=== PATIENT | male | born 1940 | race Caucasian/White ===

== ENCOUNTER 2019-08-02 18:51 | Inpatient (IN) | payer MEDICARE ==
[~2019-08-02] VITALS: Ht 177.8 cm; Wt 77.8 kg
[~2019-08-02 18:51] MED LIST: ASPIRIN81 M1 PO; AUGMENTIN 875875 MG PO; CARVEDILOL25 MG PO; COREG3.125 MG PO; DONEPEZIL HCL10 MG PO; DOXYCYCLINE100 M3 PO; OMEPRAZOLE10 MG PO; OMEPRAZOLE20 MG PO; VITAMIN D31000 UNI1 PO
[2019-08-02 18:56] VITALS: BP 134/44
[2019-08-02 19:00] VITALS: BP 140/50
[2019-08-02 19:27] LABS: BASO # 0.1 10*3/uL (0.0-0.1); BASO % 0.4 % (0.0-1.0); EOS # 0.1 10*3/uL (0.0-0.4); EOS % 0.8 % (1.0-4.0); HEMATOCRIT 40.9 % (42.0-52.0); HEMOGLOBIN 14.1 g/dl (14.0-18.0); LYMPH # 3.9 10*3/uL (1.3-4.4); LYMPH % 22.9 % (27.0-41.0); MEAN CELL VOLUME 92.3 fl (80.0-94.0); MEAN CORPUSCULAR HGB 31.8 pg (27.0-31.0); MEAN CORPUSCULAR HGB CONC 34.5 g/dl (33.0-37.0); MEAN PLATELET VOLUME 9.3 fl (9.6-12.3); MONO % 6.1 % (3.0-9.0); NEUT # 11.7 10*3/uL (2.3-7.9); NEUT % 69.3 % (47.0-73.0); PLATELET COUNT AUTOMATED 279 10*3/uL (130-400); RED BLOOD COUNT 4.43 10*6/uL (4.50-5.90); RED CELL DISTRI WIDTH 12.3 % (0-14.5); WHITE BLOOD COUNT 16.8 10*3/uL (4.8-10.8)
[2019-08-02 19:39] LABS: ACT PARTIAL THROMBO TIME 23.1 SECONDS (20.0-32.1); INTERNATIONAL NORM RATIO 0.9 (2.0-3.5)
[2019-08-02 20:01] VITALS: BP 130/60
--- NOTE | 2019-08-02 20:04 | NUR ---
I WAS PERSONALLY ORDERED TO HOLD MEDICATIONS UNTIL ORDERED TO GIVE.
[2019-08-02 20:08] LABS: ALBUMIN 3.6 gm/dl (3.1-4.5); ALKALINE PHOSPHATASE 50 U/L (45-117); BUN 14 mg/dl (7-24); CHLORIDE 110 mmol/L (98-107); CREATININE 0.94 mg/dL (0.70-1.30); POTASSIUM 3.6 mmol/L (3.5-5.1); SGOT/AST 16 IU/L (3-35); SGPT/ALT 23 U/L (12-78); SODIUM 140 mmol/L (136-145); TOTAL PROTEIN 7.1 gm/dL (6.4-8.2)
[2019-08-02 20:10] LABS: TROPONIN I < 0.015 ng/ml (<0.045)
[2019-08-02 20:45] VITALS: BP 93/73
--- NOTE | 2019-08-02 20:45 | NUR ---
A 78, admitted to ICCU, under the services of KALA Mendoza DO with a diagnosis of OVERDOSE BETA JODY ALZHEIMER DEMENTIA BRADYCARDIA. Chief complaint is DONT FEEL WELL. Patient arrived via stretcher from ER. Monitor applied. Initial assessment completed. Vital signs taken and recorded. KALA MENDOZA DO notified of admission to the unit. Orders received. See assessment for past medical history, medications and allergies. Patient and/or family oriented to unit. [facility] ICCU visitation policy reviewed. Clothing/patient valuable form completed. RALPH ANDERSON
--- NOTE | 2019-08-02 22:02 | NUR ---
PATIENTS FAMILY IN TO SEE PATIENT DAUGHTER STATED THAT SHE IS MEDICAL POWER OF CARROTING MACHINE OFFBEARER AND WILL BRING PAPERS IN TOMORROW. PATIENTS FAMILY ALSO SAID THAT THEY WOULD LIKE PATIENT TO HAVE FLU VAC UPON DISCHARGE.
--- NOTE | 2019-08-02 22:30 | NUR ---
PATIENT REFUSED EKG. DOCTOR RAMONA ON THE FLOOR HE WAS INFORMED.
--- NOTE | 2019-08-02 22:35 | NUR ---
POISION CONTROL CALLED TO GET STATUS UPDATE ON PATIENT. NO NEW ORDERS AT THIS TIME.
[2019-08-03] VITALS (7 sets, daily range): BP systolic 97–127; BP diastolic 38–49
--- NOTE | 2019-08-03 05:10 | NUR ---
PATIENT HAS SLEPT THROUGH OUT THE NIGHT AND VOICED NO COMPLAINTS TO ME. PATIENT DENIES SOB. I ASKED THE PATIENT THIS MORNING IF HE WANTED A DRINK OF WATER PATIENT SAID NO I ASKED THE PATIENT IF HE HAD TO URINATE HE SAID NO PATIENT HAS NOT URINATED SINCE BEING ADMITTED.
[2019-08-03 05:40] LABS: ALBUMIN 3.3 gm/dl (3.1-4.5); ALKALINE PHOSPHATASE 49 U/L (45-117); BUN 12 mg/dl (7-24); CHLORIDE 107 mmol/L (98-107); CHOLESTEROL 219 mg/dL (<200); CREATININE 0.82 mg/dL (0.70-1.30); HDL CHOLESTEROL 44 mg/dl (40-60); LDL CHOLESTEROL 150 mg/dL (9-159); PHOSPHOROUS 3.7 mg/dL (2.5-4.9); POTASSIUM 3.8 mmol/L (3.5-5.1); SGOT/AST 15 IU/L (3-35); SGPT/ALT 22 U/L (12-78); SODIUM 143 mmol/L (136-145); TOTAL PROTEIN 6.5 gm/dL (6.4-8.2); TRIGLYCERIDES 126 mg/dl (<150); VLDL CHOLESTEROL 25 mg/dL (6-40)
[2019-08-03 05:45] LABS: THYROID STIM HORMONE (HS) 0.637 uIU/ml (0.358-4.75)
[2019-08-03 06:26] LABS: ACT PARTIAL THROMBO TIME 25.1 SECONDS (20.0-32.1); INTERNATIONAL NORM RATIO 0.9 (2.0-3.5)
[2019-08-03 06:28] LABS: BASO % 0.3 % (0.0-1.0); EOS % 0.1 % (1.0-4.0); HEMATOCRIT 41.2 % (42.0-52.0); HEMOGLOBIN 13.4 g/dl (14.0-18.0); LYMPH # 1.9 10*3/uL (1.3-4.4); LYMPH % 20.8 % (27.0-41.0); MEAN CORPUSCULAR HGB 31.4 pg (27.0-31.0); MEAN CORPUSCULAR HGB CONC 32.5 g/dl (33.0-37.0); MEAN PLATELET VOLUME 9.7 fl (9.6-12.3); MONO # 0.6 10*3/uL (0.1-1.0); MONO % 6.3 % (3.0-9.0); NEUT # 6.7 10*3/uL (2.3-7.9); NEUT % 72.2 % (47.0-73.0); PLATELET COUNT AUTOMATED 279 10*3/uL (130-400); RED BLOOD COUNT 4.27 10*6/uL (4.50-5.90); RED CELL DISTRI WIDTH 12.5 % (0-14.5); WHITE BLOOD COUNT 9.2 10*3/uL (4.8-10.8)
[2019-08-03 06:40] LABS: MEAN CELL VOLUME 96.5 fl (80.0-94.0)
[2019-08-03 07:06] LABS: VITAMIN D, 25-HYDROXY 20.3 ng/mL (30-100)
[2019-08-03 08:20] LABS: BILIRUBIN NEGATIVE (NEGATIVE); BLOOD TRACE-INTACT (NEGATIVE); CLARITY CLEAR (CLEAR); COLOR YELLOW (YELLOW); GLUCOSE NEGATIVE (NEGATIVE); KETONE NEGATIVE (NEGATIVE); LEUKO ESTERASE NEGATIVE (NEGATIVE); NITRITE NEGATIVE (NEGATIVE); SPECIFIC GRAVITY 1.025 (1.005-1.030); UROBILINOGEN 0.2 E.U./dl (0.2-1.0)
[2019-08-03 08:28] LABS: BACTERIA TRACE; MUCOUS 1+
[2019-08-03 08:29] LABS: EPITHELIAL CELLS 0-2
--- NOTE | 2019-08-03 08:56 | NUR ---
[facility] NOTIFIED OF NEW CONSULT FOR COMPETENCY. THEY STATED THAT WOULD BE AND SHE WILL BE IN ON MONDAY.
--- NOTE | 2019-08-03 12:52 | NUR ---
COPY OF MEDICAL POWER OF CLIENT SUPPORT MANAGER HAS BEEN PLACED ON THE CHART
[2019-08-04] VITALS: BP 103/44
[2019-08-04 04:00] VITALS: BP 120/61
[2019-08-04 04:30] LABS: BASO # 0.1 10*3/uL (0.0-0.1); BASO % 0.6 % (0.0-1.0); EOS # 0.1 10*3/uL (0.0-0.4); EOS % 1.4 % (1.0-4.0); HEMOGLOBIN 13.4 g/dl (14.0-18.0); LYMPH # 2.9 10*3/uL (1.3-4.4); LYMPH % 37.3 % (27.0-41.0); MEAN CELL VOLUME 95.2 fl (80.0-94.0); MEAN CORPUSCULAR HGB 31.9 pg (27.0-31.0); MEAN CORPUSCULAR HGB CONC 33.5 g/dl (33.0-37.0); MEAN PLATELET VOLUME 9.3 fl (9.6-12.3); MONO # 0.6 10*3/uL (0.1-1.0); MONO % 8.3 % (3.0-9.0); NEUT % 52.1 % (47.0-73.0); PLATELET COUNT AUTOMATED 252 10*3/uL (130-400); RED CELL DISTRI WIDTH 12.6 % (0-14.5); WHITE BLOOD COUNT 7.7 10*3/uL (4.8-10.8)
[2019-08-04 04:44] LABS: BUN 11 mg/dl (7-24); CHLORIDE 112 mmol/L (98-107); CREATININE 0.89 mg/dL (0.70-1.30); POTASSIUM 3.4 mmol/L (3.5-5.1); SODIUM 143 mmol/L (136-145)
[2019-08-04 08:00] VITALS: BP 101/46
[2019-08-04 12:00] VITALS: BP 110/64
--- NOTE | 2019-08-04 12:45 | NUR ---
PHYSICAL THERAPY PT EVAL COMPLETED TODAY: FULL EVAL TO FOLLOW. RECOMMEND PT WHILE HERE TO ADDRESS DECREASED STRENGTH AND FUNCTIONAL MOBILITY. D/C RECOMMENDATIONS ARE SNF ON D/C TO GAIN MAX LEVEL OF MOBILITY AND PER HX AND DEMENTIA RECOMMEND ALTERNATIVE PLACEMENT SUCH SKILLED NURSING OR LTC OF 24 HR CARE AND DO NOT FEEL HE IS ABLE TO RETURN TO HOME ALONE. THANK YOU FOR REFERRAL MARIA FERNANDA GALINDO PT
[2019-08-04 16:00] VITALS: BP 108/51
[2019-08-04 20:00] VITALS: BP 102/42
[2019-08-05] VITALS: BP 101/44
[2019-08-05 06:33] LABS: BUN 10 mg/dl (7-24); CHLORIDE 109 mmol/L (98-107); CREATININE 0.92 mg/dL (0.70-1.30); POTASSIUM 3.3 mmol/L (3.5-5.1); SODIUM 142 mmol/L (136-145)
[2019-08-05 08:00] VITALS: BP 107/85
--- NOTE | 2019-08-05 08:11 | NUR ---
awake and alert, cooperative, sitting upright eating, no voiced c/o
--- NOTE | 2019-08-05 10:00 | NUR ---
PHYSICAL THERAPY Patient seen this am 1;1 for therapy visit and was resting supine in bed upon therapist arrival. Patient identified by name / and reports no new c/o's at this time. Patient transfers supine to sit EOB then sit to stand CGA, and ambulates COAL PULVERIZER OPERATOR/CGA, 50'x 2, demonstrating decreased stride with shuffling gait pattern. Patient also demonstrated "drifting" to R side and very cautious / unsteady during 90/180 turns. Patient tolerated eyes open / closed standing balance with LOB x 1 and single leg stance L side 3 seconds, R side 2 seconds prior to LOB. Patient returned to supine in bed and remained with bed alarm activated under ICCU staff Supervision. Will continue per POC as tolerated, total treatment time 17 minutes. Antwan Glaser, STORE PROTECTION SPECIALIST
--- NOTE | 2019-08-05 10:30 | NUR ---
Brick Veneer Maker in to talk to patient. Patient states lives at home alone with his family checking in on him. There are 0 steps in the home. Physician: Dr. Luigi De Oliveira Pharmacy: [facility] Home health services: none Patient's level of ADLs: INDEPENDENT Patient has working utilities: yes DME: none Follow-up physician's appointment after d/c: will be made by the hospitalist nurse director upon discharge Does patient want to access PORTAL?: no Discharge plan discussed with patient. He is sitting up in his bedside chair without distress noted. He lives at home alone with his family checking in on him. He states there are no stairs in his home. He is independent in his ADLs and ambulation. Discussed discharge planning and he is unsure of any home needs at this time. His daughter will provide transportation on discharge. Will speak to daughter. MELISSA ESPINOZA
--- NOTE | 2019-08-05 11:21 | NUR ---
TERESA received call from patients daughter. She stated that she would like the patient to be referred to [facility]. TERESA will notify Petroleum Refining Equipment Operator. -TERESA Hdz
--- NOTE | 2019-08-05 14:00 | NUR ---
Occupational therapy orders received and OT evaluation completed in full in the ICU. Patient precautions include fall risk, ww use, h/o dementia and Alzheimer's, A&Ox1, and heart monitor. Per OT eval, OT recommends a SNF. Patient would benefit from continued OT treatment to maximize independence in ADLs, functional mobility/transfers, and safety. Patient complexity is low, [id number]. Thank you for the referral. Flores Angel, OTR/L
[2019-08-05 16:00] VITALS: BP 120/72
--- NOTE | 2019-08-05 16:35 | NUR ---
CALLED TO ICU TO SPEAK WITH DAUGHTER. SHE IS VERY CONFUSED ON PLACEMENT FOR PT. TALKED WITH DAUGHTER AT LENGTH ABOUT SKILLED FACILITY VS LOCKED FACILITIES. DR HOLDEN ALSO PRESENT FOR VISIT. PER DR HOLDEN PT HAS A BHU CONSULT AND I EXPLAINED TO DAUGHTER THAT WE NEEDED TO WAIT FOR THAT TO BE DONE TO SEE IF PT WOULD QUALIFY FOR BHU STAY TO ADJUST MEDS AND SEE IF THAT WOULD HELP. DAUGHTER IS IN AGREEANCE TO THIS. EXPLAINED TO HER THAT MOST SKILLED FACILITIES ARE NOT LOCKED UNITS AND THEY MAY NOT ACCEPT PT IF HE IS A FLIGHT RISK. DAUGHTER STATES HE WOULD MOST LIKELY ATTEMPT TO LEAVE. WILL WAIT FOR DR JAMES RECOMENDATIONS AND DAUGHTER IS OK WITH THIS.
--- NOTE | 2019-08-05 17:33 | NUR ---
TRANSFERRED TO 509 WITH BELONGINGS DTR WITH PT AND AWARE OF TRANSFER
--- NOTE | 2019-08-05 17:50 | NUR ---
PT ON FLOOR. RECEIVED REPORT FROM NURSE SMALL FROM ICU. PT IN ROOM WITH DAUGHTER. INTRODUCED SELF TO PT AND DAUGHTER. PT ORIENTED TO THE ROOM AND TAUGHT USE OF CALL LIGHT. PT GETTING IN THE SHOWER. NO COMPLAINTS AT THIS TIME.
--- NOTE | 2019-08-05 19:30 | NUR ---
PATIENT SITTING IN ROOM READING THE PAPER. PLEASANTLY CONFUSED. REMINDED PATIENT TO STAY IN HIS ROOM AND LET STAFF KNOW IF HE NEEDED ANYTHING. PATIENT STATED HE WAS GETTING READY TO GO TO BED. PATIENT ASSISTED TO BED AND BED ALARM TURNED ON FOR SAFETY. CALL LIGHT WITHIN REACH.
[2019-08-05 20:00] VITALS: BP 118/51
[2019-08-06] VITALS: BP 114/59
--- NOTE | 2019-08-06 00:47 | NUR ---
24 HR chart check completed.
--- NOTE | 2019-08-06 02:00 | NUR ---
PATIENT SLEEPING IN BED. RESPIRATIONS EVEN AND UNLABORED. BED LOCKED IN LOWEST POSITION. BED ALARM ON FOR SAFETY. CALL LIGHT WITHIN REACH.
--- NOTE | 2019-08-06 07:25 | NUR ---
Spoke with patients daughter regarding requirments for short term skilled placement. She stated patient doesn't need any physical rehabilitation, he needs placed for his dementia. She stated he will qualify for Medicaid but she was told we have to find a facility prior to applying since patient is from [place]. Also gave her the option of taking him to [facility] during the day and having him live with her at night/after work. She was also going to call [facility] to see how much it would cost or if they would accept medicaid waiver. Case also discussed with Gloria STEELE.
[2019-08-06 08:00] VITALS: BP 119/57
--- NOTE | 2019-08-06 09:00 | NUR ---
PT UP IN ROOM, PLEASANTLY CONFUSED. REORIENTED FREQUENTLY. CLOSE OBSERVATION MAINTAINED.
--- NOTE | 2019-08-06 09:50 | NUR ---
OT NOTE Pt was seen this A.M. 1:1 for 13 minute OT session. Upon arrival pt was supine in bed. Pt identified by name and and had no complaints at this time. Pt transferred supine to sit EOB with SBA. While sitting EOB pt donned B socks with CGA for safety. Sit to stand completed from the bed level with CGA followed by functional mobility into the bathroom with CGA RESTAURANT CREW MEMBER, pt had bouts of unsteady gait that resulted in LOB in various directions that required Barbara to correct. Pt then stood sink side while completing UB grooming task with Barbara for assist with sequencing. Pt had one LOB backwards that required Barbara to correct. Functional mobility then completed to the recliner where he was left sitting upright with call light in hand, tray table in place, and body alarm activated for safety. Continue with rec D/C plan to SNF. ELENA Rodriguez/Jean
--- NOTE | 2019-08-06 10:49 | NUR ---
PHYSICAL THERAPY Patient presented to therapy in supine with head of bed elevated and report of no pain or other complaints. Patient was identified by name and on wristband. Patient gives informed consent for treatment. Patient performed supine ot sitting transfer with SBA. Patient performed sit to stand transfer with CGA. Patient ambulated 60' x 3 with no assistive device and Close Supervision and patient using hallway railing on the L side when needed. Patient did have multiple small LOB while ambulating with Close Supervison. Patient transferred to bed side chair with CGA X 1 with verbal cues for putting hands back on armrests of chair to sit. Patient was left in bedside chair with chair alarm attached and activated, call light within reach, and tray table in front of patient. Patient was 1:1 with this HOT DIMPLING MACHINE OPERATOR for 17 minutes total. ANA ALEGRE HOT DIMPLING MACHINE OPERATOR
[2019-08-06 12:00] VITALS: BP 120/55
--- NOTE | 2019-08-06 12:01 | NUR ---
CADDY/CADDIE SUPERVISOR reached out to the patients daughter about discharge planning. Patients daughter stated she did look into [facility], however they do not accept [place] from [place]. Patients daughter looked into [facility] but they would only be able to assist 2 days a week, 1 hour each day. Patients daughter did not look into [facility]. Patients daughter asked CADDY/CADDIE SUPERVISOR to look into [facility], [facility] and [facility] as the patient is on a waiting list. CADDY/CADDIE SUPERVISOR spoke with [facility], they do not accept Medicaid in their [facility] unit. It is out of pocket with a starting cost of $4900 up to $5500 a month. She stated they do accept Medicaid on the assisted living side but it is not a locked unit and the patient would be able to get out. CADDY/CADDIE SUPERVISOR spoke with [facility]. They would be able to take the patient with pending Medicaid. CADDY/CADDIE SUPERVISOR spoke with Melinda the patient is currently on a year long waiting list for their facility, the only option would be to have the patient go a skilled. CADDY/CADDIE SUPERVISOR faxed referral over to [facility] for review, and to Melinda for reveiw. CADDY/CADDIE SUPERVISOR attempted to reach out to the patients daughter and left a message for return call. -TERESA Hdz
--- NOTE | 2019-08-06 14:00 | NUR ---
DR MEDINA IN TO SEE PT.
--- NOTE | 2019-08-06 15:35 | NUR ---
PT HAS BEEN ACCEPTED TO [facility]. FAMILY IS AWARE AND IN AGREEMENT FOR PT TO GO BUT THEY CAN NOT TRANPORT PT UNTIL TOMORROW. NOTIFIED DR ESCOBAR AND HE STATES HE WILL TELL DR ESCOBEDO. ON NOTIFIED.
--- NOTE | 2019-08-06 15:43 | NUR ---
Patient has been accepted at [facility] and would be able to go tomorrow. BULK PIGMENT REDUCER spoke with the patients daughter about the patient being accepted. She and her brother would like to transport the patient to the facility. BULK PIGMENT REDUCER attempted to reach out to RN Hospitalist Coordinator Leticia, there was no answer. BULK PIGMENT REDUCER notified Landscape Manager Adri. -TERESA Hdz
[2019-08-06 16:00] VITALS: BP 120/71
[2019-08-07] VITALS: BP 104/58
[2019-08-07 06:33] LABS: BUN 13 mg/dl (7-24); CHLORIDE 112 mmol/L (98-107); CREATININE 0.86 mg/dL (0.70-1.30); POTASSIUM 3.8 mmol/L (3.5-5.1); SODIUM 144 mmol/L (136-145)
[2019-08-07 08:00] VITALS: BP 121/55
--- NOTE | 2019-08-07 08:17 | NUR ---
PHYSICAL THERAPY PT SITTING IN CHAIR UPON ARRIVAL. PT AGREED TO ALL PT TREATMENT THIS VISIT. PT IDENTIFIED BY NAME AND . PT PERFORMED STS FROM CHAIR WITH USE OF BUE PUSHING OF KNEES TO GET TO STANDING. PT GAIT TRAINED 40FT X 4 WITH SBA AND VC'S FOR HEEL TOE GAIT PT WAS SHUFFLING AND FOR ARM SWING TO HELP WITH BALANCE PT IS SLIGHTLY UNSTEADY WITH GAIT. PT PERFORMED STS TO EOB WITH USE OF BUE FOR ASSISITNACE TO SIT. PT SITTING EOB WITH CALL LIGHT IN HAND AT END OF SESSION AWAITING BREAKFAST. PT SEE 1:1 FOR 14 MIN. JI ROMO PTA
--- NOTE | 2019-08-07 09:32 | NUR ---
EDUCATION ADMINISTRATIVE ASSISTANT left message for the patients daughte for a return call. -TERESA Hdz
--- NOTE | 2019-08-07 12:43 | NUR ---
PATIENT HAS SET OFF BED ALARM AND BODY ALARM MULTIPLE TIMES.
--- NOTE | 2019-08-07 12:50 | NUR ---
PHYSICAL THERAPY PT SITTING EOB UPON ARRIVAL. PT STATED " THIS THING RIGHT HERE IS GOING TO BE THE OF ME." PT WAS HOLDING STRING TO BODY ALARM. PT AGREED TO ALL PT TREATMENT. PT PERFORMED STS TO AND FROM EOB WITH USE OF BUE TO PUSH OFF BED. PT GAIT TRAINED 40FT X4 WITH VC'S FOR SAFETY AND HEEL TOE GAIT. PT REQUIRED SBA PT IS UNSTEADY AND REQUIRES VC'S FOR WATCHING WHERE PT IS WALLKING. PT IN ROOM WITH PARKER AT END OF SESSION. PT SEEN 1:1 FOR 15MIN. JI ROMO PTA
--- NOTE | 2019-08-07 13:16 | NUR ---
AUDIO/VIDEO TECHNICIAN spoke with the patients daughter. She stated she and her brother would be here at 3:00pm to transport the patient to [facility]. AUDIO/VIDEO TECHNICIAN notified [facility] and will fax discharge orders. TERESA also notified RN-Jasbir and Work Bushel Worker. -TERESA Hdz
--- NOTE | 2019-08-07 13:18 | NUR ---
OT NOTE Pt was seen this P.M. 1:1 for 18 minute OT session. Upon arrival pt was sitting upright on the EOB. Pt identified by name and and had no complaints at this time. Pt presented to therapy with increased confusion as indicated by not knowing where the sink was, where the soap was located, and knowing where he was at. Pt completed functional mobility into the bathroom with CGA, pt had bouts of unsteady gait that required Barbara to correct. Pt transferred on/off standard commode with Barbara due to confusion with sequencing and following commands. Pt then stood sink side while washing her hands with Barbara and CGA. Pt was left supine in bed with call light in hand, tray table in place, and bed alarm activated for safety. Continue with rec D/C plan to SNF. MILIND Rodriguez
--- NOTE | 2019-08-07 14:45 | NUR ---
NURSE TO NURSE GIVEN TO [facility].
--- NOTE | 2019-08-07 15:30 | NUR ---
Discharge instructions reviewed with patient/family. Patient receptive and verbalizes understanding. Follow-up care arranged. Written instructions given to patient/family. PATIENT PICKED UP BY DAUGHTER AND LEFT VIA CAR. HEPLOCK WAS DISCONTINUED AND REPORT WAS CALLED. KATE GRANT
--- NOTE | 2019-08-08 07:36 | NUR ---
TERESA received a call late last night from patients daughter Mary Ellen. She stated she and her brother took the patient to [facility] and was unable to leave him there do to witnessing things within the facility. Mary Ellen asked for assistance with placing the patient from home. TERESA explained the process would be different now since the patient has returned to the community. Mary Ellen wanted to know if [facility] would be an option. TERESA explained she would reach out to [facility] and find out for her. TERESA contacted [facility]. She requested the clinicals be sent over and that the process may be lengthy with the patient going as pending medicaid. TERESA reached back out to the patients daughter Mary Ellen and explained this. She gave consent for the patients clinicals to be faxed to Sandra at [facility]. TERESA to fax clinicals. -TERESA Hdz
--- NOTE | 2019-08-08 07:58 | NUR ---
PHYSICAL THERAPY CO-SIGN I approve of the Physical Therapy notes written above. Malika Dailey, PT, DPT
[2019-08-16] MEDS ORDERED: AUGMENTIN 875875 MG PO (14:31)
== END 2019-08-07 15:30 | disposition home or self-care (01) | DRG 918 ==
LOC: ED 18:51 → EDHOLD 20:10 → ICCU 20:10 → 5E 08-05 17:37
PROVIDERS: Emergency Medicine; Family Medicine; Hospitalist; Internal Medicine; ADMIT Emergency Medicine
DX: T44.7X1A Poisoning by beta-adrenoreceptor antagonists, accidental (unintentional), initial encounter (principal); F02.80 Dementia in other diseases classified elsewhere, unspecified severity, without behavioral disturbance, psychotic disturbance, mood disturbance, and anxiety; I10 Essential (primary) hypertension; G30.9 Alzheimer's disease, unspecified; T50.911A Poisoning by multiple unspecified drugs, medicaments and biological substances, accidental (unintentional), initial encounter; I25.10 Atherosclerotic heart disease of native coronary artery without angina pectoris; E78.5 Hyperlipidemia, unspecified; D72.829 Elevated white blood cell count, unspecified; R73.9 Hyperglycemia, unspecified; E78.2 Mixed hyperlipidemia; T44.1X1A Poisoning by other parasympathomimetics [cholinergics], accidental (unintentional), initial encounter; R00.1 Bradycardia, unspecified; E87.8 Other disorders of electrolyte and fluid balance, not elsewhere classified; Z79.82 Long term (current) use of aspirin; Z95.5 Presence of coronary angioplasty implant and graft; Y92.89 Other specified places as the place of occurrence of the external cause; I25.2 Old myocardial infarction; Z82.49 Family history of ischemic heart disease and other diseases of the circulatory system; Z83.6 Family history of other diseases of the respiratory system

== ENCOUNTER 2019-08-16 17:50 | Inpatient (IN) | payer MEDICARE ==
[~2019-08-16] VITALS: Ht 170.1 cm; Wt 75.3 kg
--- NOTE | 2019-08-16 18:23 | NUR ---
SANJUANITA ROMERO Titus a 78 year old M admitted via wheel chair from the EMERGENCY ROOM as a voluntary by POA admission. Arrived on unit at 1823. ALLERGIES: NKA. Vital signs are: 97.5-64-18 118/79 SPO2 99%RA. The client's POA signed the following forms with stated understanding: Authorization For The Release of Medical Information, Clothing List, Consent to Voluntary Admission and Hospitalization, Consent and Release Forms/Receipt of Rights, Acknowledgement of Advance Directive Information, Behavioral Health Consent Form, and Informed Consent of Medications. Admitted under the services of Dr. JACOB OGLESBY,[facility]. A search was conducted and hazardous articles were removed. Client was oriented to the unit. EVELIA MALONE
[2019-08-16 18:33] VITALS: BP 118/79
[2019-08-16] MEDS ORDERED: AUGMENTIN 875-875 MG PO (18:58)
--- NOTE | 2019-08-16 19:02 | NUR ---
CALL PLACED TO RESIDENT TRAINING EXECUTIVE [phone], DR. MCRAE ANSWERED, MADE AWARE OF NEW CONSULT FOR MEDICAL MANAGEMENT
[2019-08-16 19:11] VITALS: BP 118/79
--- NOTE | 2019-08-16 19:50 | NUR ---
Photos taken of patient's laceration wounds to right hand on the first and second knuckles. Stitches are intact with 4 stitches being on the first knuckle and 8 stitches on the second knuckle.
[2019-08-16 20:14] LABS: BILIRUBIN NEGATIVE (NEGATIVE); BLOOD NEGATIVE (NEGATIVE); CLARITY CLEAR (CLEAR); COLOR YELLOW (YELLOW); GLUCOSE NEGATIVE (NEGATIVE); KETONE NEGATIVE (NEGATIVE); LEUKO ESTERASE NEGATIVE (NEGATIVE); NITRITE NEGATIVE (NEGATIVE); PH 5.5 (5.0-9.0); SPECIFIC GRAVITY 1.025 (1.005-1.030); UROBILINOGEN 0.2 E.U./dl (0.2-1.0)
[2019-08-16 20:23] VITALS: BP 118/79
[2019-08-16 20:36] LABS: BACTERIA TRACE; EPITHELIAL CELLS 0-2; MUCOUS TRACE; WBC 0-2 wbc/hpf (0-5)
--- NOTE | 2019-08-16 21:38 | NUR ---
Patient alert and oriented x3 with some confusion noted at times. Patient pleasant and cooperative. No signs of any hallucinations noted at this time. Patient ambulating in hallway unassisted with steady gait. Patient attempted to enter another patient's room but was easily redirected away from other patient's room. Patient compliant with medications without any difficulty. Provided 1:1 for emotional support and therapeutic communication. Redirected/reoriented when needed/appropriate. Plan to continue to encourage medication compliance and continue to provide emotional support/therapeutic communication. Also continue to redirect/reorient when needed/appropriate. Q 15 minute safety checks continued and maintained. See [facility] flowsheet for further documentation.
--- NOTE | 2019-08-17 00:24 | NUR ---
24 HR chart check completed.
--- NOTE | 2019-08-17 05:53 | NUR ---
Patient slept approx. 5 hours throughout shift. Q 15 minute safety checks continued and maintained.
[2019-08-17 06:27] LABS: THYROID STIM HORMONE (HS) 0.905 uIU/ml (0.358-4.75)
[2019-08-17 07:26] VITALS: BP 111/60
[2019-08-17 07:43] LABS: VITAMIN D, 25-HYDROXY 26.9 ng/mL (30-100)
--- NOTE | 2019-08-17 08:30 | NUR ---
DR. HARDEN ON UNIT TO ASSESS PATIENT.
--- NOTE | 2019-08-17 11:12 | NUR ---
P: POOR COMMUNITY INTERACTION SKILLS. POOR COPING SKILLS, ST MEMORY DEFICIT I: ENCOURAGE PT TO BE OUT IN SOCIAL AREAS OF [facility], MONITOR FOR STIMULATION ISSUES SUCH REACTIVE BEHAVIOR TO OTHERS NOISE, HOW PT HANDLES BEING APPROACHED BY STAFF, ENCOURAGE HIM NOT TO ISOLATE TO HIS ROOM. R: PT REFUSED TO COME TO [facility] FOR MORNING GROUP, STATED HE WAS TIRED. AT BREAKFAST THIS AM PT CAME TO [facility], ATE AND THEN LEFT SHORTLY AFTER. ANOTHER PEER WAS HYPERTALKATIVE DURING BREAKFAST AND SANJUANITA'S FACIAL REACTIONS BECAME TENSE, WITH TENSE POSTURING OF HIS SHOULDER LOOKING AT THE PEER. THAT PEER ALSO WAS MAKING NEGATIVE AND ARGUMENTATIVE STATEMENTS (IN A JOKING MANNER) TOWARD NURSE. THIS APPEARED TO BOTHER SANJUANITA. THIS NURSE REASSURED PT THAT HE DID NOT NEED TO ASSIST WITH SITUATION AND THAT THE SITUATION WAS BEING CONTROLLED BY STAFF. P: CONTINUE TO WORK WITH PT ABOUT PEER INTERACTIONS AT THIS TIME. ENCOURAGE GROUP INTERACTIONS AND ASSISTING HIM LIVING IN A COMMUNITY SETTING. AT THIS TIME. 15 MIN CHECKS ORDERED.
--- NOTE | 2019-08-17 11:30 | NUR ---
PHYSICAL THERAPY PT SCREEN COMPLETED TODAY AND RESIDENT IS FOUND TO BE UP AD BILL ON UNIT WITH NO LOB OR ISSUES INDICATING NEED FOR PT SERVICES. THANK YOU FOR REFERRAL MARIA FERNANDA GALINDO PT
--- NOTE | 2019-08-17 11:58 | NUR ---
AM GROUP/LEISURE SKILLS PT CHOSE NOT TO ATTEND WITH MUCH ENCOURAGEMENT FROM THIS STAFF AND NURSE. PT ATTENDED THE LAST TEN MINUTES OF GROUP AND BEGAN TO WORK ON A WORDSEARCH. PT EXPRESSING SOME FRUSTRATION WITH BODY LANGUAGE (ROLLING EYES AND ANNOYED FACIAL EXPRESSIONS) TOWARDS A PEER THAT SPEAKS LOUD AND HARD TO UNDERSTAND. PT DID NOT BECOME AGGRESSIVE AT THIS TIME AND WILL CONTINUE TO BE ENCOURAGED TO ATTEND AN DPARTICIPATE IN GROUP TO BEST OF ABILITY.
--- NOTE | 2019-08-17 15:22 | NUR ---
Shift chart check completed.
--- NOTE | 2019-08-17 15:56 | NUR ---
PM GROUP/TBS/MUSIC/BRAIN GAMES PT ATTENDED AN DPARTICIPATED IN ALL GROUP ACTIVITY'S. PT PLEASANT AND ON TASK BUT AT TIMES WOULD ASK "DOES HE EVER STOP" REFFERING TO A PT WHOSE VOICE IS LOUD AND TALKS A LOT. PT AGITATED AT TIMES BUT REDIRECTABLE. PT SMILING AND LAUGHING ALSO AT TIMES THROUGHOUT GROUP WITH NO AGGRESSION EXPRESSED. PT WILL CONTINUE TO ATTEND AND PARTICIPATE IN FUTURE RGOUP SESSIONS TO BEST OF PT ABILITY.
[2019-08-17 19:09] VITALS: BP 126/73
--- NOTE | 2019-08-17 22:28 | NUR ---
Patient alert to person with confusion noted at times. ST memory deficits noted. Patient pleasant and cooperative. No signs of any hallucinations noted at this time. Patient isolative to room this evening during snacks. Patient compliant with medications without any difficulty. Provided 1:1 for emotional support and therapeutic communication. Redirected/reoriented when needed/appropriate. Plan to continue to encourage medication compliance and continue to provide emotional support/therapeutic communication. Also continue to redirect/reorient when needed/appropriate. Q 15 minute safety checks continued and maintained. See [facility] flowsheet for further documentation.
--- NOTE | 2019-08-18 00:14 | NUR ---
24 HR chart check completed.
--- NOTE | 2019-08-18 05:17 | NUR ---
Patient slept approx. 7 hours throughout shift with one interruption. Q 15 minute safety checks continued and maintained.
[2019-08-18 07:40] VITALS: BP 130/77
--- NOTE | 2019-08-18 08:00 | NUR ---
Patient resting quietly with no c/o discomfort. Respirations easy and regular. Vital signs stable. No overt distress. EVELIA MALONE
--- NOTE | 2019-08-18 16:29 | NUR ---
Shift chart check completed.
--- NOTE | 2019-08-18 18:47 | NUR ---
pt confused. short term deficits apparent. pt reoriented. assessed for irritability and agitation. pt oriented to person only. frequently reoriented to place, time, and situation. pt displays no aggression at this time. pt did point to stitched hand once today and state to another male pt that "we are not friends" pt redirected, pt then stated, "i know, it wasn't him. it was someone else". will continue to redirect and reorient pt as appropriate. will continue to monitor for aggressive behaviors. q15 min monitoring per policy for safety.
[2019-08-18 19:47] VITALS: BP 125/75
--- NOTE | 2019-08-18 21:31 | NUR ---
Patient alert to person with confusion noted at times. ST memory deficits noted. Patient asked nurse "what am I drinking?" This nurse told patient that it was gingerale. Patient said "that's right. I'm sorry but my memory is shot". Then 2 minutes later patient asked nurse again "what am I drinking?". This nurse told patient gingerale. Patient pleasant and cooperative. No signs of any hallucinations noted at this time. Patient in dining room for snack and watching a movie with rest of patients. Patient more interactive this evening. Patient compliant with medications without any difficulty. Provided 1:1 for emotional support and therapeutic communication. Redirected/reoriented when needed/appropriate. Plan to continue to encourage medication compliance and continue to provide emotional support/therapeutic communication. Also continue to redirect/reorient when needed/appropriate. Q 15 minute safety checks continued and maintained. See [facility] flowsheet for further documentation.
--- NOTE | 2019-08-19 00:49 | NUR ---
24 HR chart check completed.
--- NOTE | 2019-08-19 06:07 | NUR ---
Patient slept approx. 6 hours throughout shift. Q 15 minute safety checks continued and maintained.
--- NOTE | 2019-08-19 06:09 | NUR ---
Patient slept approx. 8 hours throughout shift. Q 15 minute safety checks continued and maintained.
[2019-08-19 07:33] VITALS: BP 129/67
--- NOTE | 2019-08-19 08:00 | NUR ---
Patient resting quietly with no c/o discomfort. Respirations easy and regular. Vital signs stable. No overt distress. EVELIA MALONE
--- NOTE | 2019-08-19 08:04 | NUR ---
Occupational therapy orders received and nursing screen. Will follow up with patient for completion of OT evaluation. Thank you. Flores Angel, OTR/L
--- NOTE | 2019-08-19 08:15 | NUR ---
Treatment Plan meeting was held this a.m. with Dr. Rincon, RN, AT, DOG TRAINER-S and Sales Enablement Specialist in attendance. Plan for discharge at the end of the week. Pt. came to [facility] from [facility]. Will call facility today to discuss discharge Planning.
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
--- NOTE | 2019-08-19 09:27 | NUR ---
PT DISPLAYS NO AGGRESSION AT THIS TIME. PT IS NOTED TO BE IRRITABLE WITH MALE PEER. PT REDIRECTED TO MAINTAIN DISTANCE IF OTHER PT'S PRESENCE IS BOTHERING HIM. PT IS EASILY REDIRECTED, CALMLY WATCHING A MOVIE WITH PEERS AT THIS TIME. WILL CONTINUE TO REDIRECT PT APPROPRIATE. WILL CONTINUE TO ENCOURAGE MEDICATION COMPLIANCE AND PARTICIPATION IN GROUP THERAPY FOR SOCIALIZATION AND SUPPORT. Q15 MIN MONITORING PER POLICY FOR SAFETY.
--- NOTE | 2019-08-19 09:28 | NUR ---
DR. ESCOBEDO ON UNIT TO ASSESS PATIENT.
--- NOTE | 2019-08-19 10:00 | NUR ---
Clinical Updates faxed to [facility] Attn: Sandra. [phone].
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
--- NOTE | 2019-08-19 11:40 | NUR ---
AM GROUP PT ATTENDED MORNING GROUP THERAPY AND PARTICIPATED BY WATCHING A MOVIE OF HIS CHOOSING. PT WAS ENGROSSED IN THE FILM. PT EXHIBITED NO AGITATION OR AGGRESSION WHILE IN GROUP.
--- NOTE | 2019-08-19 11:42 | NUR ---
Dr. Sloan notified of wound care recommendations.
--- NOTE | 2019-08-19 13:46 | NUR ---
PHYSICAL THERAPY Reviewed chart and pt screened by OT today who documented pt is independent with mobility demonstrating good strength and balance and that nsg is in agreement. No physical therapy indicated at this time, should pt demonstrate a functional decline in status please place an order for physical therapy, thank you. Le Christensen PT
--- NOTE | 2019-08-19 14:39 | NUR ---
Shift chart check completed.
--- NOTE | 2019-08-19 15:26 | NUR ---
Spoke with pt's daughter Mary Ellen Goldstein by phone. Discussed pt's history and the events which led to pt's [facility] admission. Discussed discharge plan. Mary Ellen is hopeful that pt can return to [facility]. Other NF options were discussed should they be needed.
[2019-08-19 19:44] VITALS: BP 130/68
--- NOTE | 2019-08-19 20:26 | NUR ---
PM/EVENING PT ATTENDED IN THE PM GROUP SOCIALIZING AND ATTEMPTING TO COLOR. PT HAD TROUBLE KEEPING FOCUS AND EXPRESSING CONFUSION STATING "I HAVE TO GO MY DASUGHTER IS COMING TO VISIT ME". PT DID NOT BECOME AGGRESSIVE OR ANXIOUS AT THIS TIME. PT DID NOT ATTEND EVENING GROUP DUE TO SLEEPING IN BED AT THIS TIME.
--- NOTE | 2019-08-19 21:10 | NUR ---
Patient alert to person with confusion noted at times. ST memory deficits noted. Patient isolative to room this evening. Patient interactive with staff. Patient pleasant and cooperative. No signs of any hallucinations noted at this time. Patient compliant with medications without any difficulty. Provided 1:1 for emotional support and therapeutic communication. Redirected/reoriented when needed/appropriate. Plan to continue to encourage medication compliance and continue to provide emotional support/therapeutic communication. Also continue to redirect/reorient when needed/appropriate. Q 15 minute safety checks continued and maintained. See [facility] flowsheet for further documentation.
--- NOTE | 2019-08-20 00:08 | NUR ---
24 HR chart check completed.
[2019-08-20 07:43] VITALS: BP 129/67
--- NOTE | 2019-08-20 08:15 | NUR ---
Treatment Plan meeting was held this a.m. with Dr. Rincon, RN, AT, SHUTTLE BUS DRIVER-S and Job Captain in attendance. Plan for discharge next week. Pt. came to [facility] From [facility].
--- NOTE | 2019-08-20 09:30 | NUR ---
Received word in Hospital Discharge Meeting from Dr. Jernigan that patient is unable to return to [facility]. Confirmed this with Sandra at [facility]. Pt. is being given an Emergency Discharge today by the Analysis Manager of [facility].
--- NOTE | 2019-08-20 10:48 | NUR ---
DR ESCOBEDO AND TEAM ON UNIT TO ASSESS PATIENT
--- NOTE | 2019-08-20 11:14 | NUR ---
P-CONFUSION I-REDIRECTION WITH 1:1 THERAPEUTIC INTERVENTIONS AND PRESENT REALITY. EDUCATE AND ENCOURAGE MEDICATION COMPLIANCE R-PATIENT WITH SHORT TERM MEMORY DEFICITS. PATIENT ISOLATIVE AT TIMES IN DINING AREA. PATIENT INTERACTING AND PARTICIPATING WITH PEERS WITH ENCOURAGEMENT. SUTURES INTACT TO RIGHT FIRST AND SECOND KNUCKLES. RIGHT HAND WITH MINIMAL SWELLING. PATIENT DENIES PAIN AT THIS TIME. PATIENT CONTINUES ON AUGEMENTIN WITH NO ADVERSE REACTIONS. PATIENT MEDICATION COMPLIANT. P-CONTINUE TO ENCOURAGE MEDICATION COMPLIANCE, CONTINUE TO PRESENT REALITY, ENCOURAG GROUP THERAPY WHILE AWAKE
--- NOTE | 2019-08-20 11:36 | NUR ---
Received Notice from Sandra at [facility] that she had placed called to [facility] and [facility] both have male beds available. Notified Tomasa JUSTICE. Referral faxed to [facility] per Daughter request and [facility] and [facility] by [facility], [place] Flores.
--- NOTE | 2019-08-20 11:46 | NUR ---
AM GROUP/CURRENT EVENTS PT ATTENDED MORNING GROUP THERAPY AND PARTICIPATED BY GOING OVER THE NEWSPAPER. PT IS PLEASANTLY CONFUSED AND ASKED THE SAME QUESTION A FEW TIMES. PT EXHIBITED NO AGITATION OR AGGRESSION WHILE IN GROUP
--- NOTE | 2019-08-20 13:05 | NUR ---
Referral faxed to [facility].
[2019-08-20 19:52] VITALS: BP 117/61
--- NOTE | 2019-08-21 01:04 | NUR ---
NO ADVERSE BEHAVIORS NOTED. PT ALERT TO SELF WITH CONFUSION. PT CALM, COOPERATIVE, ISOLATIVE TO SELF. DURING 1:1 PATIENT STATED HE WAS DOING GOOD TODAY WITH NO COMPLAINTS. PT DENIES SI/HI AND HALLUCINATIONS, NO NOTED RESPONDING TO INTERNAL STIMULI. NO PARANOIA/DELUSIONS OBSERVED. NO AGITATION OR COMBATIVE BEHAVIORS NOTED. PT AMBULATORY THROUGHOUT UNIT WITH A STEADY GAIT. INDEPENDENT IN ADLS WITH PROMPTING, CONTINENT OF BOWEL AND BLADDER. NO EXIT SEEKING BEHAVIORS OBSERVED. PT CURRENTLY LAYING DOWN WITH EYES CLOSED, RESPIRATIONS EASY AND REGULAR, NO SIGNS OR SYMPTOMS OF DISTRESS NOTED. PLAN IS TO CONTINUE TO MONITOR MOOD AND BEHAVIORS. PROVIDE 1:1 WITH EMOTIONAL SUPPORT NEEDED. REORIENT AND REDIRECT NEEDED. ENCOURAGE MEDICATION COMPLIANCE. MAINTAIN Q 15 MIN CHECKS AND ELOPEMENT PRECAUTIONS.
--- NOTE | 2019-08-21 06:02 | NUR ---
PATIENT OBSERVED ON Q 15 MIN CHECKS TO HAVE SLEPT APPROX 7 HOURS THROUGHOUT THE NIGHT WITH NO AWAKENINGS OR SIGNS AND SYMPTOMS OF DISTRESS NOTED.
[2019-08-21 07:33] VITALS: BP 113/61
--- NOTE | 2019-08-21 08:15 | NUR ---
Treatment Plan meeting with Dr. Rincon, RN, AT, [facility] and Steel Spar Operator. Plan for discharge next week. Pt. will require new placement at discharge. Referrals have been sent. No Beds At [facility] or [facility], No word from [facility] or [facility].
--- NOTE | 2019-08-21 10:59 | NUR ---
Received Call from Maria Esther at [facility] They are unable to accept Referral at this time.
--- NOTE | 2019-08-21 11:38 | NUR ---
ANGEL JUSTICE/LETICIA SALAMANCA PT WAS PRESENT FOR MORNING GROUP THERAPY AND PARTICIPATED BY WATCHING THE SHOW. PT IS PLEASANTLY CONFUSED AND ANSWERS QUESTIONS BY REPEATING THEM FIRST. PT EXIBITED NO AGITATION OR AGGRESSION WHILE IN GROUP
--- NOTE | 2019-08-21 14:21 | NUR ---
Referral faxed to [facility] Intake .
--- NOTE | 2019-08-21 14:31 | NUR ---
Left a voicemail message for pt's daughter/DPOAHC Mary Ellen Triston updating her on referrals to NFs for pt.
--- NOTE | 2019-08-21 15:36 | NUR ---
PM GROUP/YASEAEE PT ATTENDED AFTERNOON GROUP THERAPY AND PARTICIPATED BY PLAYING [employer]. PT LEVEL OF CONFUSION IS HIGH AND PT BEGAN "ING" LOOKING FOR HIS COAT SO THAT HE COULD LEAVE. PT WAS EASILY REDIRECTABLE. PT EXHIBITED NO AGITATION OR AGGRESSION WHILE IN GROUP
--- NOTE | 2019-08-21 17:48 | NUR ---
ALERT TO PERSON. PT STATED HE WAS IN [place] AND IT WAS 2006. STABLE MOOD. PREOCCUPIED WITH DOORS. PT CONTINUALLY EXIT SEEKS. EASILY REDIRECTED. DENIES SI/HI. MEDICATION COMPLIANT WITHOUT DIFFICULTY. UNABLE TO PROVIDE MEDICATION EDUCATION DUE TO COGNITIVE IMPAIRMENT. PT STATED HE FEELS A LITTLE SAD AND DEPRESSED. DENIES HALLUCINATIONS AND DELUSIONS. SUTURES INTACT TO RIGHT HAND. WOUND IS WELL APPROXIMATED. ELOPEMENT/WANDER PRECAUTIONS MAINTAINED. SEE [facility] FLOWSHEET FOR SPECIFIC MONITORING. MONITOR BEHAVIORS WITH Q15 MINUTE SAFETY CHECKS.
[2019-08-21] MEDS ORDERED: FISH OIL 1,0001 EAC1 PO (17:56)
[2019-08-21] MEDS ORDERED: B-COMPLEX PLUS1 EACH PO (17:57)
--- NOTE | 2019-08-21 17:58 | NUR ---
SPOKE WITH DR. TAI AT [phone] ADVISED THAT PT HOME MED HAS BEEN UPDATED PER PT DAUGHTER AND COULD HE PLEASE TAKE A LOOK AT THEM. NO FURTHER ORDERS AT THIS TIME.
[2019-08-21 19:23] VITALS: BP 121/60
--- NOTE | 2019-08-22 00:07 | NUR ---
NO ADVERSE BEHAVIORS NOTED. PT ALERT TO SELF WITH CONFUSION. PT CALM, COOPERATIVE, ISOLATIVE TO SELF. PT DENIES SI/HI AND HALLUCINATIONS, NO NOTED RESPONDING TO INTERNAL STIMULI. NO PARANOIA/DELUSIONS OBSERVED. NO AGITATION OR COMBATIVE BEHAVIORS NOTED. PT AMBULATORY THROUGHOUT UNIT WITH A STEADY GAIT. INDEPENDENT IN ADLS WITH PROMPTING, CONTINENT OF BOWEL AND BLADDER. MINIMAL EXIT SEEKING BEHAVIORS NOTED, EASILY REDIRECTED. NO PHYSICAL COMPLAINTS VOICED. LAYING DOWN WITH EYES CLOSED, RESPIRATIONS EASY AND REGULAR, NO SIGNS OR SYMPTOMS OF DISTRESS NOTED. PLAN IS TO CONTINUE TO MONITOR MOOD AND BEHAVIORS. PROVIDE 1:1 WITH EMOTIONAL SUPPORT NEEDED. REORIENT AND REDIRECT NEEDED. ENCOURAGE MEDICATION COMPLIANCE. MAINTAIN Q 15 MIN CHECKS AND ELOPEMENT PRECAUTIONS.
[2019-08-22 07:55] VITALS: BP 123/66
--- NOTE | 2019-08-22 11:41 | NUR ---
AM/EXERCISE/CRAFT/MUSIC PT ATTENDED AND PARTICIPATED IN ALL GROUP ACTIVITY'S. PT PLEASANT BUT DISPLAYING CONFUSION AT TIMES NEEDING REMINDED WHAT HE WAS DOING OR HOW TO DO SOMETHING. NO AGGRESSION OR AGITATION AT THIS TIME. PT WILL CONTINUE TO ATTEND AN DPARTICIPATE IN FUTURE GROUP SESSIONS.
[2019-08-22 20:00] VITALS: BP 131/68
--- NOTE | 2019-08-22 22:33 | NUR ---
REMAINS ELOPEMENT RISK. ISOLATES TO HIMSELF. MEDICATION COMPLIANT. KEEPS COAT ON AT ALL TIMES AND GLASSES IN THE POCKET. REFUSES TO TAKE GLASSES OUT AT THIS TIME. DECLINES 1:1. WILL CONTINUE TO MONITOR FOR CHANGES IN BEHAVIOR/MOOD.
--- NOTE | 2019-08-23 04:14 | NUR ---
24 HR chart check completed.
--- NOTE | 2019-08-23 06:15 | NUR ---
SLEPT APPROX 7.5 HOURS
[2019-08-23 07:46] VITALS: BP 113/60
--- NOTE | 2019-08-23 08:15 | NUR ---
Treatment Plan meeting with Dr. Rincon, RN, AT, NOTCH MACHINE OPERATOR-S and [facility]cm[facility] Specialist in attendance. Plan for discharge When Stable. Pt. requires alternate placement. Referrals have been faxed.
--- NOTE | 2019-08-23 09:05 | NUR ---
Spoke with Mirna From [facility]. Advised of no return call from [facility] concerning Referral that was faxed. Mirna is to call facility and speak with Masking Machine Operator.
--- NOTE | 2019-08-23 10:51 | NUR ---
Further Clinical Updates faxed to [facility] Attn:
--- NOTE | 2019-08-23 11:02 | NUR ---
DR SHANNON AND TEAM ON UNIT TO SEE PATIENT
--- NOTE | 2019-08-23 11:50 | NUR ---
AM GROUP/EXERCISE AND BRAIN GAMES PT ATTENDED MORNING GROUP THERAPY AND PARTICIPATED IN ALL ACTIVITIES. PT IS HIGHLY CONFUSED BUT EXHIBITED NO AGITATION OR AGGRESSION WHILE IN GROUP.
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
--- NOTE | 2019-08-23 15:39 | NUR ---
Received word from Mirna at [facility] that referral is declined.
--- NOTE | 2019-08-23 15:59 | NUR ---
Barbara from the [facility] phoned and explained that because pt was issued an emergency discharge from [facility], she must speak to pt to determine if he can voice that he would like to return to that . Informed Barbara of pt's daughter Mary Ellen acting as DPOAHC and Mary Ellen's contact number was provided to Barbara. Barbara spoke to pt on the phone. Pt demonstrated memory loss about being at the but when asked if he wanted to return to [facility], pt stated, "No, That's not where I want to be."
[2019-08-23 19:05] VITALS: BP 110/65
--- NOTE | 2019-08-23 22:05 | NUR ---
SUTURES REMOVED BY SUZANNA MARTÍNEZ. EDGES WELL APPROXIMATED AND NO DRAINAGE NOTED. CLIENT TOLERATED WELL. CLIENT PLEASENTLY CONFUSED. DECLINES 1:1. GAIT STEADY. WANDERING UP AND DOWN HALLWAYS
--- NOTE | 2019-08-24 04:13 | NUR ---
24 HR chart check completed.
--- NOTE | 2019-08-24 06:14 | NUR ---
SLEPT PAST 2330PM
[2019-08-24 07:47] VITALS: BP 123/65
--- NOTE | 2019-08-24 10:53 | NUR ---
DR. SHANNON ON UNIT TO ASSESS PATIENT.
--- NOTE | 2019-08-24 11:55 | NUR ---
AM GROUP/DISCUSSION/COPING PT ENCOURAGED TO ATTEND AND PARTICIPATE GROUP BUT CHOSE TO REMIAN IN BED SLEEPING AT THIS TIME. PT WILL CONTINUE TO BE ENCOURAGED TO ATTEND AND PARTICIPATE IN FUTURE GROUP SESSIONS.
--- NOTE | 2019-08-24 15:20 | NUR ---
Shift chart check completed.
--- NOTE | 2019-08-24 15:50 | NUR ---
PM GROUP/LEISURE/FOOTBALL PT ATTENDED AND PARTICIPATED BY WATCHING [employer] FOOTBALL GAME. PT PLEASANT WITH NO AGGRESSION OR AGITATION EXPRESSED. PT WILL CONTINUE TO ATTEND AND PARTICIPATE IN GROUP SESSIONS TO BEST OF ABILITY.
--- NOTE | 2019-08-24 16:38 | NUR ---
P: CONFUSION, ISOLATION AT TIMES. I: ONE ON ONE, REDIRECTION/ORIENTATION, ENCOURAGE GROUP PARTICIPATION AND SOCIAL INTERACTIONS WITH STAFF AND PEERS. R: EFFECTIVE. PATIENT IS ALERT TO PERSON AND SITUATION WITH CONFUSION. LONG/SHORT TERM MEMORY DEFICITS. MOOD IS STABLE, HOPELESS/HELPLESS. DENIES ANY HALLUCINATIONS, DELUSIONS, HI/SI OR PAIN. MEDICATION COMPLAINT. Q 15 MINUTE SAFETY CHECKS MAINTAINED. AMBULOATORY WITH STEADY GAIT. 1 PERSON ASSIST WITH ACTIVITIES OF DAILY LIVING, CONTINENT OF BOWEL AND BLADDER. SET UP FOR MEALS, INTAKE ARE GOOD WITH ADEQUATE FLUIDS. MUCH ENCOURAGEMENT DURING SHOWER WITH VERBAL CUEING AND ASSISTANCE. INTERACTIVE WITH STAFF ONLY DURING ACTIVITIES OF DAILY LIVING. NO VERBAL OR PHYSICAL AGGRESSION OBSERVED. P: CONTINUE TO MONITOR FOR AGGRESSION, PROVIDE ONE ON ONE AND REDIRECTION/ORIENTATION NEEDED.
[2019-08-24 20:01] VITALS: BP 110/51
--- NOTE | 2019-08-24 21:32 | NUR ---
P CONFUSION, ISOLATION AT TIMES I ONE ON ONE INTERACTION, REDIRECTION/ORIENTAITON. ENCOURAGED SOCIAL INTERACTION WITH STAFF AND PEERS. R EFFECTIVE. PATIENT ALERT TO SELF AND PLACE. MOOD IS STABLE. SHORT/SHELTER MEMORY NOTED. MEDICATION COMPLIANT. Q15 MIN SAFTET CHECKS. DENIES PAIN. DENIES HALLUCINATIONS. REQUIRES ASSISTANCE PERFORMING ADLS. GAIT STEADY WITH AMBULATION. P CONTINUE TO MONITOR FOR AGGRESSION AND AGITATION. PROVIDE ON ON ONE FOR REDIRECTION/ORIENTATION PRN.
--- NOTE | 2019-08-25 05:20 | NUR ---
PATIENT SLEPT 7.5 HRS WITHOUT INTERRUPTION
[2019-08-25 07:51] VITALS: BP 125/61
--- NOTE | 2019-08-25 10:01 | NUR ---
SHIVA BONILLA ON UNIT TO ASSESS PATIENT.
--- NOTE | 2019-08-25 12:08 | NUR ---
AM GROUP/EXERCISES/BRAIN GAMES PT ATTENDED AND PARTICIPATED TO BEST OF ABILITY. PT OFTEN EXPRESSING CONFUSION BUT EASILY REDIRECTED. PT ATTEMPTING OT HELP PEER WITH JIGSAW PUZZLE. PT ALSO DID MORNING EXERCISES AND ATTEMPTED TO PARTICIPATE IN MUSIC TRIVIA. PT WILL CONTINUE OT ATTEND AND PARTICIPATE IN FUTURE RGOUP SESSIONS TO BEST OF PT ABILITY.
--- NOTE | 2019-08-25 18:05 | NUR ---
P: CONFUSION, ISOLATION AT TIMES. I: ONE ON ONE, REDIRECTION/ORIENTATION, ENCOURAGE GROUP PARTICIPATION AND SOCIAL INTERACTIONS WITH STAFF AND PEERS. R: EFFECTIVE. PATIENT IS ALERT TO PERSON AND SITUATION WITH CONFUSION. LONG/SHORT TERM MEMORY DEFICITS. MOOD IS STABLE, HOPELESS/HELPLESS. DENIES ANY HALLUCINATIONS, DELUSIONS, HI/SI OR PAIN. MEDICATION COMPLAINT. Q 15 MINUTE SAFETY CHECKS MAINTAINED. AMBULOATORY WITH STEADY GAIT. 1 PERSON ASSIST WITH ACTIVITIES OF DAILY LIVING, CONTINENT OF BOWEL AND BLADDER. SET UP FOR MEALS, INTAKE ARE GOOD WITH ADEQUATE FLUIDS. INTERACTIVE WITH STAFF ONLY DURING ACTIVITIES OF DAILY LIVING. NO VERBAL OR PHYSICAL AGGRESSION OBSERVED. P: CONTINUE TO MONITOR FOR AGGRESSION, PROVIDE ONE ON ONE AND REDIRECTION/ORIENTATION NEEDED.
[2019-08-25 19:57] VITALS: BP 110/50
--- NOTE | 2019-08-26 00:16 | NUR ---
24 HR chart check completed.
--- NOTE | 2019-08-26 05:18 | NUR ---
Patient slept approx. 5 hours throughout shift without any interruptions. Q 15 minutes safety checks continued and maintained.
--- NOTE | 2019-08-26 06:38 | NUR ---
SANJUANITA ROMERO [id number] Please refer to the physician's history and physical for past medical history, comorbid conditions, and allergies. Diagnosis: INTERMITTENT EXPLOSIVE DISORDER Kobe Score: 20,LOW OR NO RISK WOUND DESCRIPTIONS: Wound Number: 1 (REVISIT) Location of the wound: RIGHT HAND FIRST KNUCKLE Type of wound: LACERATION Thickness: Partial Size: 0.1cm X 0.1cm X< 0.1cm Tunneling: NONE Undermining: NONE Sinus Tract: NONE Presence of Exudate: NONE Amount: None Color: Brown Odor: None Periwound Skin Appearance: Normal Wound edges: CLOSED. Pain (associated with wound): DENIED AT TIME OF ASSESSMENT Wound Number: 2 (REVISIT) Location of the wound: RIGHT HAND SECOND KNUCKLE Type of wound: LACERATION Thickness: Partial Size: 0.1cm X 0.1cm X <0.1cm Tunneling: NONE Undermining: NONE Sinus Tract: NONE Presence of Exudate: NONE Amount: None Color: Brown Odor: None Periwound Skin Appearance: Edema Wound edges: CLOSED. Pain (associated with wound): DENIED AT TIME OF ASSESSMENT Surface the patient is resting on: Proform SKIN PREVENTION RECOMMENDATION: 1. Pressure redistribution support surface as appropriate 2. Elevate heels 3. Remove boots/TEDS every shift and reapply 4. Head of bed 30 degrees as tolerated 5. Assess nutrition and hydration 6. Manage moisture 7. Avoid the use of containment devices while in bed 8. Use absorptive products on surfaces limit layers of linens on bed 9. Turn and reposition every 1-2 hours in bed and every 1 hour in chair as tolerated 10. Weight shifts every 15 minutes while up in chair 11. Offloading with pillows or device to keep heels elevated off bed 12. Monitor skin at least every shift 13. Inspect under medical devices twice a day WOUND TREATMENT RECOMMENDATIONS: LEAVE OPEN TO AIR.
[2019-08-26 07:50] VITALS: BP 132/75
--- NOTE | 2019-08-26 08:30 | NUR ---
Treatment Plan meeting was held with Dr. Rincon, RN, At, SPECIAL EDUCATION SECRETARY and Rn Military. Plan for discharge at the end of the week or beginning of next week. Pt. requires placement.
--- NOTE | 2019-08-26 11:41 | NUR ---
AM GROUP PT ATTENDED MORNING GROUP THERAPY AND PARTICIPATED BY HELPING TO WORK A JIGSAW PUZZLE AND READING THE NEWSPAPER. PT WAS QUIET AND ON TASK. PT EXHIBITED NO AGITATION OR AGGRESSION WHILE IN GROUP.
--- NOTE | 2019-08-26 15:36 | NUR ---
PM GROUP/LEISURE INTERESTS PT ATTENDED AFTERNOON GROUP THERAPY AND PARTICIPATED BY "HELPING" TO DO A JIGSAW PUZZLE WITH A PEER. PT EXHIBITED NO AGITATION OR AGGRESSION WHILE IN GROUP.
--- NOTE | 2019-08-26 17:44 | NUR ---
PATIENT IS ALERT TO PERSON, PLACE AND SITUATION; ABLE TO RECALL MONTH OF AUGUST. LONG/SHORT TERM MEMORY DEFICITS NOTED. MOOD IS STABLE, NO AGGRESSION NOTED. NO RESPONSE TO INTERNAL STIMULI. DENIES ANY HALLUCINATIONS, DELUSIONS, HI/SI OR PAIN. 1 PERSON ASSIST WITH ACTIVITIES OF DAILY LIVING, CONTINENT OF BOWEL AND BLADDER, SET UP FOR MEALS. INTAKES ARE GOOD WITH ADEQUATE FLUIDS. MEDICATION COMPLAINT. Q 15 MINUTE SAFETY CHECKS MAINTAINED. REPORTS FEELING "HAPPY". CONTINUE TO MONITOR FOR AGGRESSION; PROVIDE ONE ON ONE, REDIRECTION AND REORIENTATION NEEDED.
[2019-08-26 20:00] VITALS: BP 120/86
--- NOTE | 2019-08-26 20:47 | NUR ---
EVENING/COLOR THERAPY/LEISURE PT IN ATTENDANCE AND PARTICIPATING BY COPYING OTHER MALE PT'S. A PEER LOOKING THROUGH A MAGAZINE AND THIS PT BEGAN DOING THE SAME, A PT READING THE NEWSPAPER AND THIS PT BEGAN DOING THE SAME. PT PLEASNTLY CONFUSED AT THIS TIME WITH NO AGGRESSION OR AGITATION PRESENT AT THIS TIME. PT WILL CONTINUE TO ATTEND AND PARTICIPATE IN GROUP TO BEST OF PT ABILITY.
--- NOTE | 2019-08-26 21:17 | NUR ---
CONFUSED TO PLACE AND TIME. SEVERE SHORT TERM MEMORY DEFICIT NOTED. MEDICATION EDUCATION DONE. MEDICATION COMPLIANT. WANDERING HALLWAYS. REMAINS ELOPEMENT RISK. GAIT STEADY. NO OUTBURST NOTED SO FAR THIS SHIFT.
--- NOTE | 2019-08-27 04:15 | NUR ---
24 HR chart check completed.
--- NOTE | 2019-08-27 04:20 | NUR ---
Upon discharge recommend patient to follow up for wound care in outpatient setting continue current wound care orders at discharging facility.
--- NOTE | 2019-08-27 05:59 | NUR ---
SLEPT 7 UNINTERUPTED HOURS
[2019-08-27 07:42] VITALS: BP 110/62
--- NOTE | 2019-08-27 08:00 | NUR ---
DR. HARDEN ON UNIT TO ASSESS PATIENT.
--- NOTE | 2019-08-27 08:15 | NUR ---
Treatment Plan meeting was held with Dr. Rincon, RN, AT, MICA MINER-S and Brothel Keeper in attendance. Plan for discharge next week. Working on placement for patient at this time.
--- NOTE | 2019-08-27 08:44 | NUR ---
Patient resting quietly with no c/o discomfort. Respirations easy and regular. Vital signs stable. No overt distress. ROSARIO NARVAEZ
--- NOTE | 2019-08-27 09:14 | NUR ---
Received Call from Mirna at [facility]. Pt. is accepted at [facility]. Advised of plans to discharge next week.
--- NOTE | 2019-08-27 10:25 | NUR ---
Left a voicemail message for pt's daughter/DPOAHC Mary Ellen Goldstein informing her that [facility] has accepted pt. Await return call from Mary Ellen.
--- NOTE | 2019-08-27 11:46 | NUR ---
AM GROUP PT WAS PRESENT FOR MORNING GROUP THERAPY BUT IS UNABLE TO PARTICIPATE FULLY DUE TO HIGH LEVEL OF CONFUSION. PT ATTEMPTS CONVERSATION AND HAS HAD NO AGITATION OR AGGRESSION WHILE IN GROUP. PT IS EASILY REDIRECTED IF NEEDED.
--- NOTE | 2019-08-27 15:39 | NUR ---
PM GROUP PT WAS PRESENT FOR AFTERNOON GROUP THERAPY BUT IS UNABLE TO PARTICIPATE DUE TO HIGH LEVEL OF CONFUSION. PT EXHIBITED NO AGITATION OR AGGRESSION WHILE IN GROUP.
--- NOTE | 2019-08-27 16:09 | NUR ---
Shift chart check completed.
--- NOTE | 2019-08-27 18:43 | NUR ---
P: TEARFUL AT TIMES, ESPECIAL AFTER FAMILY VISIT THIS EVENING I: ONE ON ONE FOR EMOTIONAL SUPPORT; REDIRECT NEEDED R: EFFECTIVE; PATIENT IS ALERT TO PERSON AND SITUATION WITH CONFUSION; LONG/SHORT TERM MEMORY DEFICITS. MOOD IS STABLE, TEARFUL ONCE AFTER FAMILY VISIT. NO RESPONSE TO INTERNAL STIMULI. DENIES ANY HALLUCINATIONS, DELUSIONS, HI/SI OR PAIN. MEDICATION COMPLAINT. Q 15 MINUTE SAFETY CHECKS MAINTAINED. ONE PERSON ASSIST WITH ACTIVITIES OF DAILY LIVING, CONTINENT OF BOWEL AND BLADDER, SET UP FOR MEALS, INTAKES ARE GOOD WITH ADEQUATE FLUIDS. AMBULATORY WITH STEADY GAIT. P: CONTINUE TO MONITOR MOOD/AGGRESSION; PROVIDE ONE ON ONE AND REDIRECTION NEEDED.
[2019-08-27 20:00] VITALS: BP 112/65
--- NOTE | 2019-08-28 01:25 | NUR ---
PT PLEASANT COOPERATIVE MEDICATION COMPLIANT THIS EVENING. PT WENT TO BED AND ASSISTED WITH HOC BY STAFF WITH MINIMAL PROMPTING. PT HAS NO SI/HI OR DELUSIONS. CONTINUES WITH ST/LT MEMORY DEFICEITS, REORIENTED NEEDED BY STAFF. PT RESTING QUIETLY AT THIS TIME CONITNUE TO MONITOR 15 MIN CHECKS
--- NOTE | 2019-08-28 07:00 | NUR ---
SANJUANITA SLEPT 9 HRS LAST NIGHT, NO AWAKENINGS.
[2019-08-28 07:12] VITALS: BP 124/74
--- NOTE | 2019-08-28 08:00 | NUR ---
Treatment Plan meeting was held this a.m. with Dr. Rincon, RN, AT, SCCM ADMINISTRATOR-S and Support Engineer in attendance. Plan for discharge Monday. Pt. is accepted at [facility] and will go to [place] at discharge.
--- NOTE | 2019-08-28 09:12 | NUR ---
DR HARDEN ON UNIT TO ASSESS PT. UPDATE PROVIDED TO
--- NOTE | 2019-08-28 10:23 | NUR ---
Spoke with pt's daughter/DPOAHC Mary Ellen Stipec and discussed pt's discharge to [facility]. Educated Mary Ellen about [place] Medicaid and left a Medicaid application at [facility] nurse's station for Mary Ellen to complete. Informed Mary Ellen that discharge of pt is scheduled for 09/02. The tentative plan is for Mary Ellen to transport pt after 11:30 on 09/02 to [place].
--- NOTE | 2019-08-28 11:42 | NUR ---
ANGEL JUSTICE/NICKO ASHBY PT ATTENDED MORNING GROUP THERAPY AND PARTICIPATED BY WATCHING THE PROGRAM. PT WAS ENGROSSED IN THE SHOW AND WAS LAUGHING WHEN APPROPRIATE. PT EXHIBITED NO AGITATION OR AGGRESSION WHILE IN GROUP
--- NOTE | 2019-08-28 12:17 | NUR ---
PATIENT IS ALERT TO PERSON, AND SITUATION WITH CONFUSION; ABLE TO VOICE NEEDS. LONG/SHORT TERM MEMORY DEFICITS NOTED. MOOD IS STABLE, NO AGGRESSION NOTED. NO RESPONSE TO INTERNAL STIMULI. DENIES ANY HALLUCINATIONS, DELUSIONS, HI/SI OR PAIN. 1 PERSON ASSIST VERBAL CUEING WITH ACTIVITIES OF DAILY LIVING, CONTINENT OF BOWEL AND BLADDER, SET UP FOR MEALS. INTAKES ARE GOOD WITH ADEQUATE FLUIDS. MEDICATION COMPLAINT. Q 15 MINUTE SAFETY CHECKS MAINTAINED. CONTINUE TO MONITOR FOR AGGRESSION; PROVIDE ONE ON ONE, REDIRECTION AND REORIENTATION NEEDED.
--- NOTE | 2019-08-28 15:30 | NUR ---
Clinical updates faxed to [facility]. Updated Mirna Mckeon from [facility] of plans to discharge Monday.
--- NOTE | 2019-08-28 15:47 | NUR ---
PM GROUP/BALL TOSS AND MOVIE PT ATTENDED AND PARTICIPATED FULLY IN AFTERNOON GROUP. PT WAS ON TASK AND JOVIAL. PT EXHIBITED NO AGITATION OR AGGRESSION WHILE IN GROUP.
[2019-08-28 19:05] VITALS: BP 108/60
--- NOTE | 2019-08-28 21:10 | NUR ---
Medicated with Tylenol po prn for c/o foot discomfort. Will monitor effectiveness.
--- NOTE | 2019-08-28 21:48 | NUR ---
Patient alert to person with confusion noted at times. ST memory deficits noted. Patient in diningroom for snacks. Patient interactive with staff and other patients. Patient pleasant and cooperative. No signs of any hallucinations noted at this time. Patient compliant with medications without any difficulty. Provided 1:1 for emotional support and therapeutic communication. Redirected/reoriented when needed/appropriate. Plan to continue to encourage medication compliance and continue to provide emotional support/therapeutic communication. Also continue to redirect/reorient when needed/appropriate. Q 15 minute safety checks continued and maintained. See [facility] flowsheet for further documentation.
--- NOTE | 2019-08-29 00:09 | NUR ---
24 HR chart check completed.
--- NOTE | 2019-08-29 06:10 | NUR ---
Patient slept approx. 7 hours throughout shift without any interruptions. Q 15 minute safety checks continued and maintained.
[2019-08-29 07:23] VITALS: BP 118/64
--- NOTE | 2019-08-29 08:00 | NUR ---
Patient resting quietly with no c/o discomfort. Respirations easy and regular. Vital signs stable. No overt distress. EVELIA MALONE
--- NOTE | 2019-08-29 11:36 | NUR ---
AM GROUP PT WAS PRESENT FOR MORNING GROUP THERAPY BUT WAS UNABLE TO PARTICIPATE DUE TO COGNITIVE IMPAIRMENT. PT DID PLAY CATCH WITH THE BALL BUT LOST INTEREST QUICKLY. PT WAS SPEAKING NONSENSICALLY BUT WAS NOT AGITATED OR AGGRESSIVE WHILE IN GROUP.
--- NOTE | 2019-08-29 14:36 | NUR ---
PM GROUP/FOOTBALL PT WAS PRESENT FOR AFTERNOON GROUP THERAPY AND PARTICIPATED BY HAVING A "CONVERSATION" WITH A PEER. PT EXHIBITED NO AGITATION OR AGGRESSION WHILE IN GROUP. PT IS HIGHLY CONFUSED BUT PLEASANT
--- NOTE | 2019-08-29 14:50 | NUR ---
PT CONFUSED, LOOKING FOR BALL CAP, WANDERING HALLS. PT REDIRECTED AND REORIENTED. PT STATES "OH, OK". PT IS RECEPTIVE TO REORIENTATION AND REDIRECTION, HOWEVER, ONLY LASTS A SMALL AMOUNT OF TIME AND PT REQUIRES FURTHER REORIENTATION. WILL CONTINUE TO REORIENT AND PROVIDE EMOTIONAL SUPPORT APPROPRIATE. WILL ENCOURAGE MEDICATION COMPLIANCE. Q15 MIN MONITORING PER POLICY.
[2019-08-29 20:00] VITALS: BP 113/54
--- NOTE | 2019-08-29 21:46 | NUR ---
Patient alert to person with confusion noted at times. ST memory deficits noted. Patient in diningroom for snacks. Patient interactive with staff and other patients. Patient pleasant and cooperative. Patient then ambulated in hallway unassisted with a steady gait to his room. No signs of any hallucinations noted at this time. Patient compliant with medications without any difficulty. Provided 1:1 for emotional support and therapeutic communication. Redirected/reoriented when needed/appropriate. Plan to continue to encourage medication compliance and continue to provide emotional support/therapeutic communication. Also continue to redirect/reorient when needed/appropriate. Q 15 minute safety checks continued and maintained. See [facility] flowsheet for further documentation.
--- NOTE | 2019-08-30 00:14 | NUR ---
24 HR chart check completed.
--- NOTE | 2019-08-30 05:47 | NUR ---
Patient slept approx. 7.5 hours throughout shift with 1 awakening. Q 15 minute safety checks continued and maintained.
[2019-08-30 07:50] VITALS: BP 110/52
--- NOTE | 2019-08-30 08:03 | NUR ---
Patient sitting quietly with no c/o discomfort. Respirations easy and regular. Vital signs stable. No overt distress. ROSEY BERMEO
--- NOTE | 2019-08-30 11:34 | NUR ---
AM GROUP/WATERCOLORS PT ATTENDED MORNING GROUP THERAPY AND WAS ON TASK AND FOCUSED ON HIS PAINTING UNTIL HE WAS DISTRACTED BY A PEER WHO WAS BEING COMBATIVE AND EXIT SEEKING. PT BECAME OVERLY INVOLVED WITH WHAT WAS GOING ON WITH THE PEER IN THE HALLWAY AND COULD NO LONGER FOCUS ON HIS WORK. PT BEGAN "SHADOW BOXING" AT A WORKING FROM THE KITCHEN SHE ENTERED THE DAYROOM. PT WAS EASILY REDIRECTED.
--- NOTE | 2019-08-30 15:00 | NUR ---
PT MEDICATION COMPLIANT WITH ALL MED PASSES. NO HALLUCINATIONS OR DELUSIONS. PT PARTICIPATED IN GROUP. INTERACTIVE WITH PEERS AND STAFF. PT PLAYED CHECKERS WITH A PEER SEVERAL TIMES TODAY. PT HAS WANDERED HALLWAY FOLLOWING OTHER PEERS. NO AGRESSION OR DELSUIONS NOTED. CONITNUE TO MONITOR 15 MIN CHECKS AND REORIENT NEEDED
--- NOTE | 2019-08-30 15:39 | NUR ---
PM GROUP/LEISURE INTERESTS PT ATTENDED AFTERNOON GROUP THERAPY AND PARTICIPATED BY PLAYING CHECKERS WITH A PEER AND SITTING AND TALKING WITH ME AND ANOTHER PEER AND LISTENING TO MUSIC. PT EXHIBITED NO AGITATION OR AGGRESSION WHILE IN GROUP. PT DID BEGIN TO EXIT SEEK TOWARDS THE END OF GROUP LOOKING FOR HIS COAT.
[2019-08-30 20:02] VITALS: BP 123/63
--- NOTE | 2019-08-30 21:08 | NUR ---
CLIENT MEDICATION COMPLIANT. STATES DAY WAS OK. DENIES ANY ISSUES AT THIS TIME. WANDERS THE UNIT BUT NOT INTERACTIVE WITH PEERS. GAIT STEADY. WILL MONITOR FOR MOOD/BEHAVIOR CHANGES. MONITOR FOR SAFETY.
--- NOTE | 2019-08-31 03:30 | NUR ---
24 HR chart check completed.
--- NOTE | 2019-08-31 05:26 | NUR ---
SLEPT WELL PAST 2200PM
[2019-08-31 07:45] VITALS: BP 114/60
--- NOTE | 2019-08-31 08:00 | NUR ---
Patient resting quietly with no c/o discomfort. Respirations easy and regular. Vital signs stable. No overt distress. EVELIA MALONE
--- NOTE | 2019-08-31 11:02 | NUR ---
PT IS PLEASANTLY CONFUSED. ASSESSED FOR ORIENTATION LEVEL, REORIENTED AND REDIRECTED APPROPRIATE. PT IS ORIENTED TO PERSON ONLY. PT IS CALM, COOPERATIVE WITH ASSESSMENT, RECEPTIVE TO REORIENTATION AND REDIRECTION. WILL CONTINUE TO REORIENT AND REDIRECT APPROPRIATE. WILL CONTINUE TO MONITOR PT Q15 MIN PER POLICY.
--- NOTE | 2019-08-31 11:52 | NUR ---
AM GROUP/EXERCISES/BALL TOSS PT ATTENDED AND PARTICIPATED IN ALL GROUP ACTIVITIES. PT PLEASANT AND ON TASK WITH NO AGGRESSION OR AGITATION EXPRESSED. PT OFTEN EXPRESSING CONFUSION BUT EASILY REDIRECTED. PT WILL CONTINUE TO ATTEND AND PARTICIPATE IN FUTURE GROUP SESSIONS.
--- NOTE | 2019-08-31 15:37 | NUR ---
PM GROUP/LEISURE SKILLS PT ATTENDED AND PARTICIPATED BY PAINTING A MONTY PICTURE, WATCHING FOOTBALL, AND SITTING IN FRONT OF LIGHT THERAPY BOX. PT PLEASANT BUT EXPRESSING SOME CONFUSION BUT EASILY REDIRECTED. PT WILL CONTINUE TO ATTEND AND PARTICIPATE IN GROUP.
[2019-08-31 19:43] VITALS: BP 119/65
--- NOTE | 2019-08-31 21:09 | NUR ---
ISOLATIVE TO ROOM. DECLINED SNACK BUT TOOK MEDICATIONS READILY. DENIES ANY ISSUES OR PROBLEMS. WILL CONTINUE TO MONITOR FOR CHANGES IN MOOD/BEHAVIOR
--- NOTE | 2019-08-31 21:57 | NUR ---
UP TO DININGROOM TO GET SNACK. PLEASENTLY CONFUSED.
--- NOTE | 2019-09-01 01:23 | NUR ---
24 HR chart check completed.
--- NOTE | 2019-09-01 05:31 | NUR ---
SLEPT INTERMITTENT PAST 0300AM. SOMATIC C/O OF INJURED SPINE AND SHE CAN'T MOVE HER LEGS OR ARMS WHILE WIGGLING FEET AND MOVING HANDS.
--- NOTE | 2019-09-01 05:34 | NUR ---
SLEPT WELL PAST 2300PM
[2019-09-01 07:36] VITALS: BP 115/65
--- NOTE | 2019-09-01 08:05 | NUR ---
Patient resting quietly with no c/o discomfort. Respirations easy and regular. Vital signs stable. No overt distress. EVELIA MALONE
--- NOTE | 2019-09-01 12:32 | NUR ---
PT MEDICATION COMPLIANT WITH ALL MED PASSES. NO HALLUCINATIONS OR DELUSIONS PT PARTICIPATED IN GROUP. INTERACTIVE WITH PEERS AND STAFF. PT HAS WANDERED HALLWAY FOLLOWING OTHER PEERS. NO AGRESSION OR DELSUIONS NOTED. CONITNUE TO MONITOR 15 MIN CHECKS AND REORIENT NEEDED.
[2019-09-01 20:02] VITALS: BP 113/62
--- NOTE | 2019-09-01 23:00 | NUR ---
P-CONFUSION, ST/LT MEMORY DEFICITS. I-PROVIDE 1:1 FOR VENTILATION OF FEELINGS. PROVIDE SUPPORT NEEDED. ASSESS ORIENTATION. PRESENT REALITY AND REORIENT NEEDED. ENCOURAGE MEDICATION COMPLIANCE AND EDUCATE. MONITOR SLEEP. R- PATIENT ALERT TO SELF, CONFUSED. PT STATED IT WAS 2002 AND IT WAS DAY. PT REQUIRES FREQUENT REORIENTATION THROUGHOUT SHIFT. PT CALM, PLEASANT, AND INTERACTIVE. PT MEDICATION COMPLIANT WITHOUT DIFFICULTY, UNABLE TO EDUCATE DUE TO COGNITION. PT DENIES SI/HI, HALLUCINATIONS OR PAIN. NO NOTED RESPONDING TO INTERNAL STIMULI, PARANOIA, OR DELUSIONS. NO PHYSICAL COMPLAINTS VOICED. PT AMBULATORY WITH A STEADY GAIT, CONTINENT OF BOWEL AND BLADDER, ATE HS SNACK. PT RESTING QUIETLY AT THIS TIME WITH EYES CLOSED, RESPIRATIONS EASY AND REGULAR, NO SIGNS OR SYMPTOMS OF DISTRESS NOTED. P-CONTINUE TO MONITOR MOOD AND BEHAVIORS. PRESENT REALITY AND REDIRECT NEEDED. PROVIDE 1:1 WITH THERAPEUTIC INTERVENTIONS. ENCOURAGE MEDICATION COMPLIANCE. MAINTAIN Q 15 MIN CHECKS.
--- NOTE | 2019-09-02 04:40 | NUR ---
24 HOUR CHART CHECK COMPLETED.
--- NOTE | 2019-09-02 05:36 | NUR ---
PATIENT OBSERVED ON Q 15 MIN CHECKS TO HAVE SLEPT APPROX 7 HOURS THROUGHOUT THE NIGHT WITH X1 BRIEF AWAKENING DURING STAFF CHECKS. NO SIGNS OR SYMPTOMS OF DISTRESS NOTED.
--- NOTE | 2019-09-02 07:30 | NUR ---
Patient resting quietly with no c/o discomfort. Respirations easy and regular. Vital signs stable. No overt distress. ROSARIO NARVAEZ
--- NOTE | 2019-09-02 08:15 | NUR ---
Treatment Plan meeting was held this a.m. with Dr. Rincon, RN, AT, [facility] and Superintendent Container Terminal in attendance. Plan for discharge today. Pt. is accepted at [facility]. Family to transport with Raisin Washer time between 12:00 and 12:30 p.m. Pt. will received Primary Care and Mental Health Follow up at facility.
[2019-09-02 08:27] VITALS: BP 123/47
[2019-09-02] MEDS ORDERED: DIVALPROEX SOD250 MG PO (08:33)
[2019-09-02] MEDS ORDERED: EXELON13.3 MG/21 T (08:33)
[2019-09-02] MEDS ORDERED: MEMANTINE HCL10 MG PO (08:33)
--- NOTE | 2019-09-02 08:42 | NUR ---
DR. ZABALA NOTIFIED OF PATIENT BEING DISCHARGED, TO INFORM DR. SHANNON OF TODAY'S DISCHARGE.
--- NOTE | 2019-09-02 08:53 | NUR ---
DR. SHANNON ON UNIT TO ASSESS PATIENT AND AWARE OF DISCHARGE.
--- NOTE | 2019-09-02 09:19 | NUR ---
Clinical Updates and Discharge Paperwork Faxed to [facility] .
--- NOTE | 2019-09-02 10:25 | NUR ---
[facility] CALLED FOR NURSE TO NURSE REPORT, SPOKE WITH LEW FOR REPORT.
--- NOTE | 2019-09-02 10:28 | NUR ---
Faxed Medicaid application to [facility] for pt's LTC needs.
--- NOTE | 2019-09-02 10:46 | NUR ---
PATIENT IS ALERT AND ORIENT TO SELF WITH CONFUSION; ABLE TO RECALL KIMMIE "KAROL" PRESIDENT AND HIS NAME "PRASAD ROMERO". MOOD IS STABLE. DENIES ANY HALLUCINATIONS, DELUSIONS, HI/SI OR PAIN. NO RESPONSE TO INTERNAL STIMULI OBSERVED. 1 PERSONA ASSIST WITH ACTIVIES OF DAILY LIVING-VERABL CUEING; CONTINENT OF BOWEL AND BLADDER, SET UP FOR MEALS, INTAKES ARE GOOD WITH ADEQUATE FLUIDS. AMBULATORY WITH STEADY GAIT. MEDICATION COMPLAINT. Q 15 MINUTE SAFETY CHECKS MAINTAINED. NO AGGRESSION OBSERVED. NO ATTEMPTS TO EXIT SEEK. INTERACTIVE WITH STAFF AND OTHER PATIENTS. UP IN DINING ROOM WATCHING TV. CONTINUE TO MONITOR FOR AGGRESSION; PROVIDE ONE ON ONE AND REDIRECTION NEEDED.
--- NOTE | 2019-09-02 12:01 | NUR ---
Patient is discharging today to [facility]. Follow-up will be with Dr Rincon, visiting psychiatrist. While at [facility], pt's mood and behaviors improved. Pt appears to be tolerating other patients well and is friendly toward them. Pt did participate in some of the [facility] programming.
--- NOTE | 2019-09-02 12:18 | NUR ---
FAMILY/POA PRESENT, ALL DISCHARGE INSTRUCTIONS REVIEWED AND SIGNED BY POA. ALL BELONGING GATHERED. PATIENT ASSISTED TO WHEELCHAIR. ASSISTED OFF UNIT WITH STAFF AND FAMILY. ALL BELONGING AND DISCHARGE INSTRUCTIONS SENT WITH PATIENT.
== END 2019-09-02 12:18 | disposition other institution (70) | DRG 883 ==
LOC: 3N 17:50
PROVIDERS: ADMIT Psychiatry & Neurology Psychiatry
DX: F63.81 Intermittent explosive disorder (principal); F02.81 Dementia in other diseases classified elsewhere, unspecified severity, with behavioral disturbance; S60.229A Contusion of unspecified hand, initial encounter; I25.10 Atherosclerotic heart disease of native coronary artery without angina pectoris; G30.9 Alzheimer's disease, unspecified; I10 Essential (primary) hypertension; E78.5 Hyperlipidemia, unspecified; S60.221A Contusion of right hand, initial encounter; R73.9 Hyperglycemia, unspecified; E55.9 Vitamin D deficiency, unspecified; Z82.49 Family history of ischemic heart disease and other diseases of the circulatory system; Z83.6 Family history of other diseases of the respiratory system; Z79.899 Other long term (current) drug therapy

== ENCOUNTER 2019-10-19 15:09 | Inpatient (IN) | payer MEDICARE ==
[~2019-10-19 15:09] MED LIST changes: +AUGMENTIN 875-875 MG PO; +B-COMPLEX PLUS1 EACH PO; +DIVALPROEX SOD250 MG PO; +EXELON13.3 MG/21 T; +FISH OIL 1,0001 EAC1 PO; +MEMANTINE HCL10 MG PO
[2019-10-19] MEDS ORDERED: DEPAKOTE DR500 MG PO (15:44)
[2019-10-19] MEDS ORDERED: VISTARIL50 MG PO (15:45)
[2019-10-20 01:35] VITALS: BP 122/68
--- NOTE | 2019-10-20 01:35 | NUR ---
A 78, admitted VOLUNTARY by POA to 3N, under the services of Dr. JACOB OGLESBYJENNI with a diagnosis of INTERMITTENT EXPLOSIVE DISORDER. Chief complaint is COMBATIVE WITH STAFF AND RESIDENTS, EXIT SEEKING, INCREASED AGITATION. Patient arrived via stretcher from [facility]. Initial assessment completed. Vital signs taken and recorded. MOLINA HO notified of admission to the unit. Orders received. See assessment for past medical history, medications and allergies. Patient oriented to unit. [facility]. visitation policy reviewed. Clothing/patient valuable form completed. HOMERO GRANT
--- NOTE | 2019-10-20 02:22 | NUR ---
DR NOEL NOTIFIED AT [phone] ABOUT PATIENT ADMITTED TO THE UNIT. PATIENT PLACED UNDER DR ESCOBEDO FOR MEDICAL MANAGEMENT
--- NOTE | 2019-10-20 04:16 | NUR ---
KAMI HARVEY CALLED AND UPDATED AT THIS TIME.
--- NOTE | 2019-10-20 04:20 | NUR ---
ON UNIT AT THIS TIME TO SEE PATIENT.
[2019-10-20 04:33] VITALS: BP 122/68
--- NOTE | 2019-10-20 05:39 | NUR ---
PT ALERT AND ORIENTATED X 2. PT WITH MINIMAL VERBALIZATION DURING ASSESSMENT, REFUSED TO COMPLETE STATING HE WAS TIRED. INFORMATION USED TO COMPLETE ASSESSMENT RECEIVED FROM FACILITY. PT COMPLIANT WITH SKIN ASSESSMENT, MUSHY HEELS, DRY FLAKEY FEET, LOWER 3 PLUS EDEMA LEFT LEG AND FOOT, TRACES OF EDEMA ON LOWER RIGHT LEG. DR. NOEL MADE AWARE AND RECEIVED ORDERS. PT RESTING QUIETLY AT THIS TIME. NO COMBATIVE BEHAVIORS OBSERVED. NO SIGNS OR SYMPTOMS OF DISTRESS NOTED.
--- NOTE | 2019-10-20 06:28 | NUR ---
PATIENT OBSERVED ON Q 15 MIN CHECKS TO HAVE SLEPT APPROX 3 HOURS WITH X1 AWAKENING DURING STAFF CHECKS.
[2019-10-20 06:35] LABS: BASO % 0.6 % (0.0-1.0); EOS # 0.2 10*3/uL (0.0-0.4); EOS % 3.6 % (1.0-4.0); HEMATOCRIT 40.8 % (42.0-52.0); HEMOGLOBIN 13.3 g/dl (14.0-18.0); LYMPH # 1.5 10*3/uL (1.3-4.4); LYMPH % 24.4 % (27.0-41.0); MEAN CELL VOLUME 95.1 fl (80.0-94.0); MEAN CORPUSCULAR HGB CONC 32.6 g/dl (33.0-37.0); MEAN PLATELET VOLUME 8.8 fl (9.6-12.3); MONO # 0.7 10*3/uL (0.1-1.0); MONO % 10.8 % (3.0-9.0); NEUT # 3.8 10*3/uL (2.3-7.9); NEUT % 60.4 % (47.0-73.0); PLATELET COUNT AUTOMATED 290 10*3/uL (130-400); RED BLOOD COUNT 4.29 10*6/uL (4.50-5.90); RED CELL DISTRI WIDTH 12.4 % (0-14.5); WHITE BLOOD COUNT 6.3 10*3/uL (4.8-10.8)
[2019-10-20 06:59] LABS: ALBUMIN 2.7 gm/dl (3.1-4.5); BUN 14 mg/dl (7-24); CHLORIDE 109 mmol/L (98-107); CHOLESTEROL 218 mg/dL (<200); CREATININE 0.83 mg/dL (0.70-1.30); POTASSIUM 3.5 mmol/L (3.5-5.1); SGOT/AST 35 IU/L (3-35); SGPT/ALT 38 U/L (12-78); SODIUM 146 mmol/L (136-145); TOTAL PROTEIN 6.3 gm/dL (6.4-8.2); TRIGLYCERIDES 150 mg/dl (<150); VLDL CHOLESTEROL 30 mg/dL (6-40)
--- NOTE | 2019-10-20 07:03 | NUR ---
PT HAS REFUSED ALL AM MEDICATION AND HAS REFUSED TO LEAVE ON AND WEAR HIS HEEL PROTECTORS.
[2019-10-20 07:23] LABS: ALKALINE PHOSPHATASE 60 U/L (45-117); HDL CHOLESTEROL 26 mg/dl (40-60); LDL CHOLESTEROL 162 mg/dL (9-159)
[2019-10-20 07:43] LABS: VITAMIN D, 25-HYDROXY 37.3 ng/mL (30-100)
[2019-10-20 07:49] VITALS: BP 129/64
--- NOTE | 2019-10-20 10:45 | NUR ---
DR. ESPINO ON UNIT TO ASSESS PT, UPDATE PROVIDED.
--- NOTE | 2019-10-20 11:54 | NUR ---
AM GROUP/EXERCISE/STORY/ART PT CHOSE NOT TO ATTEND AT THIS TIME DUE TO SLEEPING. PT WILL CONTINUE TO BE ENCOURAGED TO ATTEND AND PARTICIPATE IN FUTURE GROUP SESSIONS TO BEST OF PT ABILITY.
--- NOTE | 2019-10-20 15:25 | NUR ---
PT REFUSED BREAKFAST. PT DID COME OUT OF HIS ROOM FOR LUNCH. MEDICATION GIVEN AT THAT TIME. PT WOULD NOT WAKE UP TO TAKE HIS MEDICATION THIS AM. PT WAS AROUSABLE HOWEVER CLOSED HIS EYES AND WENT BACK TO SLEEP. PT ASKED FOR "SALADS FOR BOTH OF HIS FEET". PT REDIRECTED BACK TO HIS LUNCH TRAY. PT UNSTEADY AT TIMES. PT TIRED DURING VISITATION AND UNABLE TO STAY AWAKE. PT PLACED BACK IN BED. BEHAVIORS MONITORED WITH Q15 MINUTE SAFETY CHECKS. SEE [facility] FLOWSHEET FOR SPECIFIC MONITORING.
[2019-10-20 19:36] VITALS: BP 125/62
--- NOTE | 2019-10-20 23:06 | NUR ---
Patient alert and oriented x2 with confusion noted. Memory deficits noted. Mood calm but guarded. No s/s of responding to internal stimuli at this time. Patient refused HS medications at this time. Attempted to redirect/reorient but at times patient is unreceptive. Provided 1:1 for therapeutic communication and emotional support. Plan to continue to encourage medication compliance and also provide therapeutic communication and emotional support. Also continue to redirect/reorient when needed/appropriate. Will continue to monitor moods/behaviors. Patient ambulatory in hallway with steady gait unassisted. Q 15 minute safety checks continued and maintained. See [facility] flowsheet for further documentation.
--- NOTE | 2019-10-21 04:10 | NUR ---
24 HR chart check completed.
--- NOTE | 2019-10-21 05:24 | NUR ---
Patient slept approx. 6 hours throughout shift. Q 15 minute safety checks continued and maintained.
--- NOTE | 2019-10-21 08:00 | NUR ---
Treatment Plan meeting was held with EMILY Monroy RN, AT, SALES REPRESENTATIVE SUPERVISOR-S and First Officer And Flight Instructor in attendance. Pt. came to [facility] from [facility]. Will reach out to facility to discuss discharge Plans.
[2019-10-21 08:27] VITALS: BP 120/64
--- NOTE | 2019-10-21 08:44 | NUR ---
Spoke with Mirna Olivo with [facility]. Pt. is a bed hold at [place] and Will return at discharge.
--- NOTE | 2019-10-21 11:12 | NUR ---
Clinical Updates faxed to [facility] Attn: Admissions .
--- NOTE | 2019-10-21 11:40 | NUR ---
NO AM GROUP
--- NOTE | 2019-10-21 15:08 | NUR ---
Received Call from Shayy, Squaring Machine Operator at [facility]. Shayy states that patient cannot return to the facility due to behaviors. Shayy states that patient daughter is aware and that she contacted the Ombudsman. [facility] and Left message to discuss options for alternate placement. Office is out today due to the Holiday.
--- NOTE | 2019-10-21 15:42 | NUR ---
PM GROUP PT DID NOT ATTEND AFTERNOON GROUP THERAPY. PT WAS IN BED RESTING.
--- NOTE | 2019-10-21 15:47 | NUR ---
Left a voicemail message for Mary Ellen Goldstein pt's dtr/DPOAHC, requesting a return call.
[2019-10-21 19:35] VITALS: BP 118/62
--- NOTE | 2019-10-21 19:45 | NUR ---
P---ANGER, CONFUSION I--TALKED WITH CLIENT. ENCOURAGED HIM TO NOT GET IN PERSONAL SPACE OF PEERS. WILL PROVIDE MEDICATIONS, SNACK NEEDED. R--OH I JUST WANT TO HELP HER, BUT OK. CONTINUES TO WANDER IN HALLWAY P-MONITOR FOR CHANGES IN BEHAVIOR/MOOD AND SAFETY. BE AVAILABLE FOR CLIENTS NEEDS. CONTINUE SAFETY CHECKS Q15 MINUTES AND PRN
--- NOTE | 2019-10-21 20:51 | NUR ---
EVENING/MLK DISCUSSION PT CHOSE NOT TO ATTEND BUT TO RELAX IN CHAIR IN FRONT OF NURSES STATION AT THIS TIME. PT REMAINED THERE ENTIRE GROUP SESSION.
--- NOTE | 2019-10-21 21:00 | NUR ---
COMPLETE SHOWER DONE. NO PROBLEMS WITH CLIENT AND SHOWERING
--- NOTE | 2019-10-22 01:24 | NUR ---
24 HR chart check completed.
--- NOTE | 2019-10-22 06:05 | NUR ---
SLEPT WELL OVER 7 HOURS UNINTERUPTED. MOVED SELF IN BED.
[2019-10-22 07:37] VITALS: BP 114/78
--- NOTE | 2019-10-22 08:00 | NUR ---
Treatment Plan meeting was held with Dr. Rincon, EMILY Monroy, RN, AT, AESTHETICS INSTRUCTOR-S and Structural Engineering Project Manager. Plan for discharge when stable. Pt. will require alternate placement due to not able to return to [facility].
--- NOTE | 2019-10-22 10:00 | NUR ---
DR. SHANNON ON UNIT TO ASSESS PATIENT.
--- NOTE | 2019-10-22 11:39 | NUR ---
AM GROUP/WORRY BEADS PT WAS PRESENT FOR MORNING GROUP THERAPY BUT IS UNABLE TO PARTICIPATE DUE TO COGNITIVE IMPAIRMENT. PT SAT QUIETLY AND OBSERVED. PT EXHIBITED NO AGITATION OR AGGRESSION WHILE IN GROUP.
--- NOTE | 2019-10-22 13:00 | NUR ---
VITALSl 147/66, 69, 20, 97.0, 100% RA BLOOD SUGAR 161.
--- NOTE | 2019-10-22 14:21 | NUR ---
PATIENT DISCHARGED OFF THE FLOOR TO ROOM 524. PATIENT ASSISTED OF UNIT IN [facility] WITH NURSING STAFF, SECURITY AND FAMILY. NURSE RICK LUND REPORT GIVEN TO MELISSA. KAMI ALBARRAN.
--- NOTE | 2019-10-22 14:32 | NUR ---
Patient attempted to follow a discharged pt and his family out of the door. Pt stated to this marketing writer "I'm supposed to go there." Redirected pt toward nurses station. Pt was cooperative.
--- NOTE | 2019-10-22 15:35 | NUR ---
PM GROUP PT WAS PRESENT FOR AFTERNOON GROUP THERAPY AND ATTEMPTED A WORDSEARCH BUT DUE TO COGNITIVE IMPAIRMENT WAS UNABLE TO COMPREHEND OR COMPLETE THE TASK. PT WANDERED THE ROOM A LITTLE, TURNED THE LIGHTS OFF AND ON, SAT DOWN AND OBSERVED PEERS WORKING. PT EXHIBITED NO AGITATION OR AGGRESSION WHILE IN GROUP
--- NOTE | 2019-10-22 18:46 | NUR ---
P: EXIT SEEKING TO LEAVE UNIT. I: ONE ON ONE AND REDIRECTION. R: EFFECTIVE. PATIENT IS ALERT TO PERSON AND SITUAITON WITH CONFUSION. BELIEVE HE IS IN [place] AND DATE IS Nov. LONG/SHORT TERM MEMORY DEFICITS. MOOD IS STABLE. NO AGGRESSION OBSERVED. DENIES ANY HALLUCINATIONS, DELUSIONS, HI/SI OR PAIN. MEDICATION COMPLAINT. Q 15 MINUTE SAFETY CHECKS. INTERACTIVE WITH STAFF AND PARTICIPATES IN GROUP SESSION. 1 PERSON VERBAL CUEING WITH ACTIVITIES OF DAILY LIVING. CONTINENT/INCONTINENT OF BOWEL AND BLADDER. SET UP FOR MEALS, INTAKES ARE GOOD WITH ADEQUATE FLUIDS. PATIENT SEEN BY PODIARTIST THIS AFTERNOON. P: CONTINUE TO MONITOR FOR AGGRESSION AND MEDICATION COMPLAINCE. PROVIDE ONE ON ONE AND REDIRECTION NEEDED
[2019-10-22 20:00] VITALS: BP 117/75
--- NOTE | 2019-10-22 22:50 | NUR ---
Patient alert and oriented x2 with confusion noted. Memory deficits noted. Mood calm but guarded. No s/s of responding to internal stimuli at this time. Patient compliant with HS medications without any difficulty. Redirected/reoriented easily when needed/appropriate. Provided 1:1 for therapeutic communication and emotional support. Plan to continue to encourage medication compliance and also provide therapeutic communication and emotional support. Also continue to redirect/reorient when needed/appropriate. Will continue to monitor moods/behaviors. Patient ambulatory in hallway with steady gait unassisted. Q 15 minute safety checks continued and maintained. See [facility] flowsheet for further documentation.
--- NOTE | 2019-10-23 00:57 | NUR ---
24 HR chart check completed.
--- NOTE | 2019-10-23 05:55 | NUR ---
Patient slept approx. 6.5 hours throughout shift. Q 15 minute safety checks continued and maintained.
[2019-10-23 07:33] VITALS: BP 114/60
--- NOTE | 2019-10-23 08:00 | NUR ---
Treatment Plan meeting was held with Dr. Rincon, EMILY Monroy, RN, BRANCH LEAD-S and Fountain Waitress/Waiter in attendance. Plan for discharge when stable. Referral has been faxed to [facility] and [facility]. No Word from Facilities. Message was left with [facility]. Continue to wait for Resident review Results.
--- NOTE | 2019-10-23 09:53 | NUR ---
Spoke with Cuca [facility] for [facility]. She is going to [facility] today to speak with them concerning their unwillingness to allow patient to return to [facility]. Cuca states that there is a process to discharge and Facility is required to give a 30 day notice even if the discharge is Emergent and that the facility is required to look for alternate placement for the patient and not the facility that he is currently housed in for Stabalization. Cuca states that she will work with them today and if they are still unwilling to allow patient to return then she will contact the [place] Department [facility].
--- NOTE | 2019-10-23 11:14 | NUR ---
P: PT MOOD IS LABILE, IRRITABLE AT TIMES WITH STAFF AND PEERS. PT REFUSED AM PO MEDS. PT ISOALTIVE TO ROOM THROUGHOUT THE MORNING REFUSING TO GET OUT OF BED FOR BREAKFAST. I: PROVIDE EMOTIONAL SUPPORT AND 1:1 FOR PT TO VOICE FEELINGS, ENCOURAGE PO INTAKE, ENCOURAGE MED COMPLIANCE R: PT ALERT TO PERSON ONLY, CONFUSION AND SHORT TERM MEMORY DEFICITS NOTED PER PT BASELINE. PT REMAINS LABILE AND IRRITABLE AT TIMES. NO HALLUCINATIONS OR DELUSIONS NOTED AT THIS TIME. NO SUICIDAL THOUGHTS OR BEHAVIORS NOTED AT THIS TIME. PT CONTINUES TO REFUSE AM PO MEDS, UNABLE TO PROVIDE MED EDUCATION D/T COGNITION. P: MONITOR PT BEHAVIORS ON Q15 MIN SAFETY, ENCOURAGE MED COMPLIANCE, ENCOURAGE PO INTAKE, PROVIDE EMOTIONAL SUPPORT AND 1:1 FOR PT TO VOICE FEELINGS
[2019-10-23 15:41] LABS: BILIRUBIN NEGATIVE (NEGATIVE); CLARITY SL CLOUDY (CLEAR); COLOR YELLOW (YELLOW); GLUCOSE NEGATIVE (NEGATIVE)
[2019-10-23 15:42] LABS: BLOOD NEGATIVE (NEGATIVE); KETONE TRACE (NEGATIVE); LEUKO ESTERASE NEGATIVE (NEGATIVE); NITRITE NEGATIVE (NEGATIVE); PH 7.5 (5.0-9.0); UROBILINOGEN 0.2 E.U./dl (0.2-1.0)
[2019-10-23 15:44] LABS: BACTERIA 1+
--- NOTE | 2019-10-23 17:10 | NUR ---
PASSR HERE TO ASSESS PT, UPDATE PROVIDED.
[2019-10-23 19:37] VITALS: BP 109/64
--- NOTE | 2019-10-23 22:15 | NUR ---
P-CONFUSION, EXIT SEEKING I-REDIRECTION WITH 1:1 THERAPEUTIC INTERVENTIONS AND PRESENT REALITY. EDUCATE AND ENCOURAGE MEDICATION COMPLIANCE. R-PATIENT MEDICATION COMPLAINT AT HS. PATIENT PROVIDED FLUIDS AND REFUSED NOURISHMENT. PATIENT AMBULATORY ON UNIT WITH STEADY GAIT AND WITH NO ASSISTIVE DEVICE. PATIENT REDIRECTED TO ROOM THROUGHOUT SHIFT. PATIENT ATTEMPTING TO EXIT SEEK AND REDIRECTED AWAY FROM DOOR. P-CONTINUE TO ENCOURAGE MEDICATION COMPLIANCE, CONTINUE TO PRESENT REALITY, ENCOURAGE GROUP THERAPY WHILE AWAKE
--- NOTE | 2019-10-24 06:14 | NUR ---
PATIENT SLEPT 8 HOURS OF INTERRUPTED SLEEP THROUGHOUT SHIFT. Q 15 MINUTE CHECKS MAINTAINED. 24 HR chart check completed.
--- NOTE | 2019-10-24 07:40 | NUR ---
SPOKE WITH DR MCRAE RE: PT MEDICAL MEDS STILL NEEDING ADDRESSED FROM ADMISSION SUCH COREG PER HE BELIEVES IT WAS BEING HELD D/T HR AND HE WILL TAKE A LOOK.
[2019-10-24 08:00] VITALS: BP 115/80
--- NOTE | 2019-10-24 08:00 | NUR ---
Treatment Plan meeting was held with Dr. Rincon, RN, AT and Process Development Chemist in attendance. Plan for discharge next week. Awaiting return Call from adrianne at [facility].
--- NOTE | 2019-10-24 11:12 | NUR ---
SPOKE WITH PODIATRY AT [phone], RE: PT ULTRASOUND ORDERED. I ADVISED THAT WE DO NOT THINK THAT THE PT WILL TOERLRATE IT AND BE ABLE TO HOLD STILL TO HAVE THE ULTRASOUND OBTAINED. PER HE WILL GO AHEAD AND CANCEL THE ORDER.
--- NOTE | 2019-10-24 11:32 | NUR ---
DR SHANNON ON UNIT TO ASSESS PT, UPDATE PROVIDED.
--- NOTE | 2019-10-24 11:35 | NUR ---
AM GROUP PT DID NOT ATTEND MORNING GROUP THERAPY. PT WAS STILL IN BED SLEEPING.
--- NOTE | 2019-10-24 11:35 | NUR ---
Received Call from Mirna Olivo collar folder operator at [facility]. Mary Thurman had visited [facility] and Advised the facility that it is the facility responsibility to find alternate placement for the patient and not the hospital where he is currently house. Patient will return to [facility] at discharge if no other facility is found prior to discharge. [facility] is working with [facility] to seek alternate placement. Mirna states even if Discharge was emergent that the facility is required to issue a 30 day notice to the patient and Responsible Democrat and work with the family on alternate placement in that 30 day period. Call was placed to [facility] for [facility] [phone] who states that she visited [place] Yesterday and advised when patient is ready for discharge he will return to [facility] unless alternate placement is found before that time by Geovanny. Received word from Mirna from [facility] that Medicaid is still in Process and is still medicaid Pending.
--- NOTE | 2019-10-24 15:32 | NUR ---
Spoke with Mary Ellen Goldstein Pt. Daughter concerning discharge Planning. Explained that Dr. Rincon recommends discharge Next week. Advised that Pt. will return to [place] if no alternate placement is found. Advised Daughter that hospital is working with Mirna houser [facility] to find alternate placement. Will know more tommorow.
--- NOTE | 2019-10-24 15:36 | NUR ---
PM GROUP PT WAS PRESENT FOR AFTERNOON GROUP THERAPY AND PARTICIPATED BY LOOKING AT A MAGAZINE AND WATCHING TV. PT IS VERY CONFUSED AND REPEATS MOST EVERYTHING THAT IS SAID. PT EXHIBITED NO AGITATION OR AGGRESSION WHILE IN GROUP.
[2019-10-24 19:46] VITALS: BP 107/63
--- NOTE | 2019-10-24 23:49 | NUR ---
P-CONFUSION, EXIT SEEKING, AGITATED I-REDIRECTION WITH 1:1 THERAPEUTIC INTERVENTIONS AND PRESENT REALITY. EDUCATE AND ENCOURAGE MEDICATION COMPLIANCE. R-PATIENT MEDICATION COMPLAINT AT HS. PATIENT PROVIDED FLUIDS AND REFUSED NOURISHMENT. PATIENT AMBULATORY ON UNIT WITH STEADY GAIT AND WITH NO ASSISTIVE DEVICE. PATIENT REDIRECTED TO ROOM THROUGHOUT SHIFT. PATIENT ATTEMPTING TO EXIT SEEK AND REDIRECTED AWAY FROM DOOR. PATIENT AGITATED IN DINING AREA DURING HS AFTER PATIENT THREW CHIPS ON HIM. PATIENT ALSO AGITATED WHEN APPROACHED BY ANOTHER PATIENT THAT WAS AGITATED. P-CONTINUE TO ENCOURAGE MEDICATION COMPLIANCE, CONTINUE TO PRESENT REALITY, ENCOURAGE GROUP THERAPY WHILE AWAKE
--- NOTE | 2019-10-25 06:12 | NUR ---
PATIENT SLEPT 7 HOURS OF INTERRUPTED SLEEP THROUGHOUT SHIFT. Q 15 MINUTE CHECKS MAINTAINED. 24 HR chart check completed.
[2019-10-25 07:50] VITALS: BP 110/65
--- NOTE | 2019-10-25 08:00 | NUR ---
Patient resting quietly with no c/o discomfort. Respirations easy and regular. Vital signs stable. No overt distress. EVELIA MALONE
--- NOTE | 2019-10-25 09:30 | NUR ---
PT GIVEN MILK OF MAGNESIA FOR CONSTIPATION. NO RECORDED BM SINCE 10/21. PT BOWEL SOUNDS ACTIVE X4. ABDOMEN SOFT, NONTENDER. NO GUARDING NOTED UPON PALPATION. PT DENIES DISCOMFORT.
--- NOTE | 2019-10-25 10:11 | NUR ---
DR. DU MADE AWARE OF PT'S CONSTIPATION AND ADMINISTRATION OF PRN MILK OF MAGNESIA.
--- NOTE | 2019-10-25 11:08 | NUR ---
CALL PLACED TO [facility] FOR POST-OP SHOE. RECEIVED. SHOE PLACED TO LEFT FOOT.
--- NOTE | 2019-10-25 11:12 | NUR ---
CALL PLACED TO PODIATRY RESIDENT, MADE AWARE OF DME THAT NEEDS SIGNED STATING MEDICAL NECESSITY FOR POST-OP SHOE. PODIATRY RESIDENT STATES HE WILL BE OVER SHORTLY.
--- NOTE | 2019-10-25 11:37 | NUR ---
AM GROUP PT DID NOT ATTEND MORNING GROUP THERAPY. PT WAS STILL IN BED SLEEPING.
--- NOTE | 2019-10-25 13:10 | NUR ---
PT CONFUSED AND DROWSY THIS SHIFT. PT REORIENTED, ENCOURAGED TO GO TO GROUP ROOM WITH PEERS. PT AWAKE, AROUSES EASILY TO VERBAL STIMULI, PT NOT WISHING TO INTERACT MUCH. PT DID COME TO DINING AREA AND CONSUME HIS LUNCH AND FLUIDS. PT UNRECEPTIVE TO REORIENTATION D/T LOW INTEREST IN INTERACTION. PT NOW IN DINING AREA WITH PEERS, RESTING. WILL CONTINUE TO MONITOR PT AND ENCOURAGE INTERACTION WITH STAFF AND PEERS. WILL MONITOR PT FOR ANY AGITATION. WILL ENCOURAGE CONTINUED MEDICATION COMPLIANCE. Q 15 MIN MONITORING PER POLICY FOR SAFETY.
[2019-10-25 19:34] VITALS: BP 110/68
--- NOTE | 2019-10-25 20:49 | NUR ---
P-CONFUSION, EXIT SEEKING I-REDIRECTION WITH 1:1 THERAPEUTIC INTERVENTIONS AND PRESENT REALITY. EDUCATE AND ENCOURAGE MEDICATION COMPLIANCE. R-PATIENT MEDICATION COMPLAINT AT HS. PATIENT PROVIDED FLUIDS AND NOURISHMENT AT HS. PATIENT AMBULATORY ON UNIT WITH STEADY GAIT AND WITH NO ASSISTIVE DEVICE AND WEARING ORTHO SHOE TO LEFT FOOT WITHOUT DIFFICULTY. PATIENT REDIRECTED TO ROOM THROUGHOUT SHIFT. PATIENT ATTEMPTING TO EXIT SEEK AND REDIRECTED AWAY FROM DOOR WITHOUT DIFFICULTY. P-CONTINUE TO ENCOURAGE MEDICATION COMPLIANCE, CONTINUE TO PRESENT REALITY, ENCOURAGE GROUP THERAPY WHILE AWAKE
--- NOTE | 2019-10-26 06:23 | NUR ---
PATIENT SLEPT 6 HOURS OF INTERRUPTED SLEEP THROUGHOUT SHIFT. Q 15 SAFETY CHECKS MAINTAINED. 24 HR chart check completed.
[2019-10-26 08:00] VITALS: BP 110/65
--- NOTE | 2019-10-26 09:54 | NUR ---
PT SLEEPING, REFUSED MEDICATION. AROUSABALE. PT WAS SLEEPING AT THE DINNINGROOM TABLE AFTER BREAKFAST. PT ASSISTED TO THE BATHROOM AND TO BED. WILL REATTEMPT MEDICATIONS AT A LATER TIME. PT REFUSED POST OP SHOE. PT REFUSED TO ANSWER ANY ASSESSMENT QUESTIONS. WILL REAPPROACH AT A LATER TIME. BEHAVIORS MONITORED WITH Q15 MINUTE SAFETY CHECKS. [facility] FLOWSHEET FOR SPECIFIC MONITORING.
--- NOTE | 2019-10-26 11:55 | NUR ---
AM GROUP/JOHNNY NEW YEAR PT UNABLE TO ATTEND AT THIS TIME DUE TO SLEEPING IN ROOM. PT WILL CONTINUE TO BE ENOCURAGED TO ATTEND AN DPARTICIPATE IN FUTURE GROUP SESSIONS TO BEST OF PT ABILITY.
--- NOTE | 2019-10-26 15:43 | NUR ---
PM GROUP/ART/MUSIC PT IN ATTENDANCE JAIL THROUGH GROUP. PT WORKING ON EATING LUNCH AT THIS TIME. PT THEN EXPRESSES INTEREST IN ART PROJECT AND JOINS BY PAINTING. PT ATTEMPTS AT CONVERSATION, BUT PT EXPRESSES CONFUSION BY ASKING OFF TOPIC QUESTIONS. PT DID NOT EXPRESS ANY AGITATION OR AGGRESSION AT THIS TIME AND WILL CONTINUE TO ATTEND AN DPARTICIPATE IN GROUP TO BEST OF PT ABILITY.
[2019-10-26 20:00] VITALS: BP 103/62
--- NOTE | 2019-10-26 21:42 | NUR ---
P--ISOLATIVE, NONCOMPLIANT, ANGRY, CONFUSED, POOR ST/LT MEMORY I--DISCUSSED CLIENTS MEDICATIONS DURING MED PASS, GAVE CLIENT TIME TO EXPRESS AND ISSUES HE HAD. VERY CONFUSED AND FORGETFULL. ISOLATIVE TO ROOM. SITTING ON SIDE OF BED IN DARK. DID ALLOW LIGHTS TO BE TURNED ON. MEDICATION COMPLIANT. R--I NEED TO FIND MY PENSION. HAVE YOU EVERY FACED, YOU KNOW HOW YOU HAVE TO FACE PENSION. OH IT IS IN THE BANK. UMM..YOU KNOW I JUST KEEP FORGETTING P MONITOR FOR S/S OF CHANGE IN BEHAVIOR/MOOD. MONITOR Q 15 MIN AND PRN FOR SAFETY. PROVIDE EMOTIONAL SUPPORT
--- NOTE | 2019-10-26 22:00 | NUR ---
REFUSED TO ALLOW THIS NURSE TO SEE HIS SORE FOOT. REFUSES TO WEAR SURGICAL BOOT.
[2019-10-27 07:48] VITALS: BP 112/65
--- NOTE | 2019-10-27 08:58 | NUR ---
Patient resting quietly with no c/o discomfort. Respirations easy and regular. Vital signs stable. No overt distress. GIVENS,NORAH
--- NOTE | 2019-10-27 16:11 | NUR ---
ALERT TO PERSON WITH CONFUSION NOTED. PT DROWSY THIS SHIFT. AFTERNOON MEDICATIONS HELD. PT COMPLIANT THIS AFTERNOON WITH LAB DRAW AND WEARING THE POST OP SHOE. VPA ELEVATED. NICK RAMON UPDATED AND RECEIVED A NEW ORDER. PT INCONTINENT PRIOR TO LUNCH. TAMARA CARE PROVIDED. BEHAVIORS MONITORED WITH Q15 MINUTE SAFETY CHECKS. NO COMBATIVENESS NOTED. SEE [facility] FLOWSHEET FOR SPECIFIC MONITORING.
[2019-10-27 20:00] VITALS: BP 115/64
--- NOTE | 2019-10-27 20:30 | NUR ---
DAUGHTER CALLED AND UPDATE GIVEN. SHE SPOKE WITH CLIENT AND HE DID TAKE MEDICATIONS WITH MUCH ENCOURAGEMENT. HAD TO BE FED SNACK IF HE FORGOT HOW TO FEED SELF. WILL ASK DR JAMES IN MORNING TO CHANGE DEPAKOTE TO SPRINKLES.
--- NOTE | 2019-10-27 22:13 | NUR ---
REFUSED ALL PM CARE INCLUDING ORAL CARE.
--- NOTE | 2019-10-28 00:42 | NUR ---
24 HR chart check completed.
--- NOTE | 2019-10-28 06:06 | NUR ---
SLEPT APPROX 8 HOURS. MOVED SELF IN BED. NO DISTRESS NOTED
[2019-10-28 07:36] VITALS: BP 92/63
--- NOTE | 2019-10-28 08:00 | NUR ---
Treatment Plan meeting was held with Dr. Rincon, EMILY Monroy, RN, AT, AUTOMATIC DATA PROCESSING PLANNER-S and Sole Rounder in attendance. Plan for discharge this week when stable. Working with Mirna from [facility] for Alternate Placement.
[2019-10-28 11:08] VITALS: BP 120/58
--- NOTE | 2019-10-28 11:48 | NUR ---
NO AM GROUP THERAPY DUE TO NEW PT ASSESSMENTS
--- NOTE | 2019-10-28 15:32 | NUR ---
PM GROUP PT ATTENDED AFTERNOON GROUP THERAPY AND PARTICIPATED BY SITTING WITH THE GROUP AND SOCIALIZING. PT IS VERY CONFUSED BUT EXHIBITED NO AGITATION OR AGGRESSION WHILE IN GROUP.
--- NOTE | 2019-10-28 18:50 | NUR ---
DR. MCRAE NOTIFIED OF FAMILY CONCERN WITH ELEVATED LABS FOR CHOLESTEROL.
--- NOTE | 2019-10-28 18:51 | NUR ---
PATIENT IS ALERT TO SELF WITH CONFUSION; ABLE TO VOICE NEEDS WHEN ASKED. LONG/SHORT TERM MEMORY DEFICITS. MOOD IS HOPELESS/HELPLESS. NO VOICED STATEMENT OF HI/SI OR PAIN. 1 PERSON ASSSIST WITH ACTIVITIES OF DAILY LIVING, INCONTINENT OF BOWEL AND BLADDER. SET UP FOR MEALS, INTAKES ARE FAIR. UNSTEADY GAIT NOTED, AMBULATED WITH ASSIST. MORE ALERT TODAY. INTERACTIVE WITH STAFF AND OTHER PATIENTS. PARTICIPATED IN GROUP SESSION. MEDICATION COMPLAINT. Q 15 MINUTE SAFETY CHECKS. NO AGGRESSION OBSERVED. CONTINUE TO MONITOR FOR AGGRESSION AND MEDICATION COMPLIANCE. PROVIDE ONE ON ONE AND REDIRECTION NEEDED.
[2019-10-28 19:47] VITALS: BP 101/72
--- NOTE | 2019-10-28 20:42 | NUR ---
EVENING/LEISURE SKILLS PT IN ATTENDANCE AND ATTEMPTED TO PARTICIPATE THROUGH CONVERSATION AND WATCHING A MOVIE. PT TRYING TO TALK ABOUT RACE [employer]ORSES BUT SOON FORGETS THE TOPIC AND BEGINS TO LAUGH. PT PLEASANT WITH NI AGITATION OR AGGRESSION EXPRESSED AT THIS TIME. PT WILL CONTINUE TO ATTEND AND PARTICIPATE IN FUTURE GROUP SESSIONS TO BEST OF ABILITY.
--- NOTE | 2019-10-28 21:15 | NUR ---
Patient alert to self with confusion noted. Memory deficits noted. Mood calm but guarded. No s/s of responding to internal stimuli at this time. Patient compliant with HS medications without any difficulty. Redirected/reoriented easily when needed/appropriate. Provided 1:1 for therapeutic communication and emotional support. Plan to continue to encourage medication compliance and also provide therapeutic communication and emotional support. Also continue to redirect/reorient when needed/appropriate. Will continue to monitor moods/behaviors. Patient ambulatory in hallway with 1 assist due to slightly unsteady. Q 15 minute safety checks continued and maintained. See [facility] flowsheet for further documentation.
[2019-10-29 08:00] VITALS: BP 108/71
--- NOTE | 2019-10-29 08:00 | NUR ---
Treatment Plan meeting was held with Dr. Rincon, EMILY Monroy, RN, AT, BELLMAN CAPTAIN-S and Rope Silica Machine Operator. Plan for discharge at the end of the week. [facility] is working on alternate placement. If no placement is secured Pt. will return to [facility] at discharge.
--- NOTE | 2019-10-29 11:41 | NUR ---
AM GROUP PT ATTENDED MORNING GROUP THERAPY AND PARTICIPATED BY SITTING WITH PEERS AND SOCIALIZING TO THE BEST OF HIS ABILITY. PT EXHIBITED NO AGITATION OR AGGRESSION WHILE IN GROUP. PT WAS TALKING NONSENSICALLY BUT WAS CONTENT TO BE HEARD.
--- NOTE | 2019-10-29 15:27 | NUR ---
Shift chart check completed.
--- NOTE | 2019-10-29 15:43 | NUR ---
PM GROUP PT WAS PRESENT FOR AFTERNOON GROUP THERAPY AND ATTEMPTS TO PARTICIPATE BUT IS HIGHLY CONFUSED AND UNABLE TO PERFORM SIMPLE TASKS ON HIS OWN AND EVEN WHEN SHOWN CANNOT COMPLETE TASKS SET BEFORE HIM. PT EXHIBITED NO AGITATION OR AGGRESSION WHILE IN GROUP.
--- NOTE | 2019-10-29 17:57 | NUR ---
PATIENT IS ALERT TO SELF WITH CONFUSION; ABLE TO VOICE NEED. LONG/SHORT TERM MEMORY DEFICITS. RECALL PLACE [place] AND DATE: NOV 04. DENIES ANY HALLUCINATIONS, DELUSION, HI/SI OR PAIN. NO RESPONSE TO INTERNAL STIMULI. MEDICATION COMPLAINT, MEDICATIONS CRUSHED IN PUDDING. Q 15 MINUTE SAFETY CHECKS MAINTAINED. 1 PERSON ASSIST WITH ACTIVITIES OF DAILY LIVING, CONTINENT OF BOWEL AND BLADDER. SET UP FOR MEALS, INTAKES ARE GOOD. AMBULATORY WITH STANDBY ASSIST DUE TO UNSTEADY GAIT. INTERACTIVE WITH STAFF AND PARTICIPATED IN GROUP SESSION. NO AGGRESSION OBSERVED. CONTINUE TO MONITOR FOR AGGRESSION; PROVIDE ONE ON ONE, REDIRECTION AND ORIENTATION NEEDED.
[2019-10-29 20:00] VITALS: BP 106/72
--- NOTE | 2019-10-29 20:28 | NUR ---
EVENING/LEISURE SKILLS PT IN ATTENDANCE ATTEMPTING CONVERSATION WITH PEERS. PT WATCHING MOVIE WELL. PT PLEASANT WITH NO EXPRESSIONS OF AGITATION OR AGGRESSION. PT WILL CONTINUE TO ATTEND AN DPARTICIPATE IN GROUP TO BEST OF PT ABILITY.
--- NOTE | 2019-10-29 21:19 | NUR ---
Patient alert to self with confusion noted. Memory deficits noted. Mood calm but guarded. No s/s of responding to internal stimuli at this time. Patient compliant with HS medications without any difficulty. Patient sitting in diningroom with other patients during snacks. Patient talking and joking with other patients. Redirected/reoriented easily when needed/appropriate. Provided 1:1 for therapeutic communication and emotional support. Plan to continue to encourage medication compliance and also provide therapeutic communication and emotional support. Also continue to redirect/reorient when needed/appropriate. Will continue to monitor moods/behaviors. Patient ambulatory in hallway with 1 assist due to slightly unsteady. Q 15 minute safety checks continued and maintained. See [facility] flowsheet for further documentation.
--- NOTE | 2019-10-30 00:09 | NUR ---
24 HR chart check completed.
--- NOTE | 2019-10-30 05:45 | NUR ---
Patient slept approx. 7 hours throughout shift. Q 15 minute safety checks continued and maintained.
--- NOTE | 2019-10-30 08:00 | NUR ---
Treatment Plan meeting was held with Dr. Rincon, EMILY Monroy, RN, AT, SOURCING INTERNSHIP-S and Elementary Substitute Teacher in attendance. Plan for discharge Monday.
[2019-10-30 08:23] VITALS: BP 112/73
--- NOTE | 2019-10-30 09:15 | NUR ---
PT REFUSED AM MEDS X3 ATTEMPTS THIS AM. PT SLEEPING. AROUSES EASILY VIA VERBAL/TACTILE STIMULI BUT IS REFUSING TO TAKE MEDICATIONS AT THIS TIME.
--- NOTE | 2019-10-30 11:39 | NUR ---
AM GROUP/EXERCISE AND BRAIN GAMES PT DID NOT ATTEND MORNING GROUP THERAPY. PT WAS STILL IN BED.
--- NOTE | 2019-10-30 11:45 | NUR ---
THIS RN APPROACHED PT FOR LUNCH. PT OBSERVED INCONTINENT OF URINE AT THIS TIME. PT ASSISTED OOB X2 STAFF FOR INCONTINENCE CARE. PT BECAME PHYSICALLY AGGRESSIVE. 3RD STAFF TO ROOM TO ASSIST. INCONTINENCE CARE PROVIDED, CLOTHES CHANGED, PT TAKEN TO DINING ROOM FOR LUNCH AT THIS TIME. PALOMO AWARE AND OK TO GIVE MORNING PSYCH MEDS LATE D/T PT REFUSAL THIS AM. SEE EMAR.
--- NOTE | 2019-10-30 13:25 | NUR ---
Clinical Updates faxed to [facility] Attn: Mirna.
--- NOTE | 2019-10-30 13:45 | NUR ---
PT CALM AT THIS TIME. ENGAGED IN APPROPRIATE CONVERSATION WITH THIS RN. NO FURTHER AGGRESSIVE BEHAVIORS OF THIS TIME. PT AGREED TO TAKE MILK OF MAG FOR CONSTIPATION.
--- NOTE | 2019-10-30 13:53 | NUR ---
PRN MILK OF MAGNESIA 30ML PO GIVEN AT THIS TIME FOR NO BM X3 DAYS. WILL MONITOR FOR EFFECTIVENESS.
--- NOTE | 2019-10-30 15:36 | NUR ---
PM GROUP/WATERCOLORS AND MUSIC PT WAS PRESENT FOR AFTERNOON GROUP THERAPY SITTING QUIETLY AT A TABLE WITH PEERS. PT WAS CONTENT TO OBSERVE PT IS NOT ABLE TO PARTICIPATE DUE TO COGNITIVE IMPAIRMENT. PT EXHIBITED NO AGITATION OR AGGRESSION WHILE IN GROUP
--- NOTE | 2019-10-30 17:16 | NUR ---
P- CONFUSED. REFUSED BREAKFAST AND AM MEDS DESPITE ENCOURAGEMENT AND MULTIPLE ATTEMPTS. COMBATIVE WITH HANDS ON CARE THIS AM. I- ORIENTATION, MOOD AND BEHAVIOR ASSESSED. ASSESSED PT FOR SI/HI, INTENT OR PLAN. ASSESSED PT FOR S/S HALLUCINATIONS, PARANOIA AND/OR DELUSIONS. MEDICATIONS ADMINISTERED PER PHYSICIAN'S ORDERS. ASSISTANCE WITH ADL CARE PROVIDED NEEDED. ENCOURAGED PT TO ATTEND AND PARTICIPATE IN [place] GROUPS AND ACTIVITIES. R- PT IS ALERT AND ORIENTED TO PERSON ONLY. OTHERWISE CONFUSED. ST/LT MEMORY GAPS NOTED. RESPS EASY AND EVEN ON ROOM AIR. MOOD IS ANGRY/IRRITABLE AT TIMES, PT BECAME COMBATIVE THIS AM WITH HANDS ON CARE BUT HAS HAD NO FURTHER COMBATIVE BEHAVIORS THIS SHIFT. PT DENIES SI/HI, INTENT OR PLAN. PT DENIES HALLUCINATIONS, NO RESPONSE TO INTERNAL STIMULI NOTED. NO PARANOIA OR DELUSIONS NOTED. PT REFUSED AM MEDICATIONS, TOOK AM PSYCH MEDS AROUND NOON PER H.YENNY PMHNP-BC, SEE EMAR FOR DETAILS. NO DISTRESS NOTED. P- PLAN TO CONTINUE CURRENT TX, CONTINUE TO MONITOR MOOD AND BEHAVIORS, PROVIDE APPROPRIATE REORIENTATION, REDIRECTION AND 1:1 NEEDED. CONTINUE TO ENCOURAGE MEDICATION COMPLIANCE WELL GROUP ATTENDANCE AND PARTICIPATION.
--- NOTE | 2019-10-30 18:53 | NUR ---
PT REFUSED SHOWER THIS DATE DESPITE MULTIPLE ATTEMPTS.
[2019-10-30 19:40] VITALS: BP 115/70
--- NOTE | 2019-10-30 20:45 | NUR ---
P--CONFUSION, ANGER ISSUES I--DISCUSSED MEDICATIONS, EMOTIONAL SUPPORT, OFFERED 1:1 R--ANSWERED YES TO MEDICATIONS. NON VERBAL TO OTHER QUESTIONS. MEDICATION COMPLIANT P- MONITOR FOR CHANGES IN MOOD/BEHAVIOR. MONITOR Q15 MINS AND PRN FOR SAFETY
--- NOTE | 2019-10-31 00:44 | NUR ---
24 HR chart check completed.
--- NOTE | 2019-10-31 04:43 | NUR ---
INCONTINENT OF URINE. BED SATURATED. COMPLETE BEDBATH AND BED CHANGE DONE. CLIENT COOPERATIVE WITH STAFF
--- NOTE | 2019-10-31 06:02 | NUR ---
SLEPT INTERUPTED FOR BATH 8 HOURS
--- NOTE | 2019-10-31 07:45 | NUR ---
PT RESTING IN BED QUIETLY WITH EYES CLOSED. RESPS EASY AND EVEN ON ROOM AIR. MOVES SELF FREQUENTLY. PT DECLINED TO GET UP FOR BREAKFAST DESPITE MUTIPLE ATTEMPTS. PT PLEASANT, NO AGGRESSION AT THIS TIME.
--- NOTE | 2019-10-31 08:00 | NUR ---
Treatment Plan meeting was held with Dr. Rincon, RN, AT and Commercial Appraiser in attendance. Plan for discharge Monday. Waiting on [facility] to substantiate Placement. Will follow.
[2019-10-31 08:02] VITALS: BP 116/71
--- NOTE | 2019-10-31 08:17 | NUR ---
PT REMAINS IN BED RESTING QUIETLY WITH EYES CLOSED AT THIS TIME. EASILY AROUSABLE WHEN NAME CALLED. PT PLEASANT, STILL DOES NOT WISH TO GET UP FOR BREAKFAST. TOOK AM MEDS WITHOUT DIFFICULTY THEN RETURNED TO SLEEP. PT MOVES SELF IN BED. NO DISTRESS NOTED.
--- NOTE | 2019-10-31 09:36 | NUR ---
ON UNIT TO SEE PT AT THIS TIME, UPDATE GIVEN.
--- NOTE | 2019-10-31 11:22 | NUR ---
, AND ON UNIT TO SEE PT AT THIS TIME. MADE AWARE OF NO BM DOCUMENTED SINCE THE . MADE AWARE PT GIVEN MILK OF MAG YESTERDAY WITHOUT EFFECT OF THIS TIME. STATES SHE WILL ENTER NEW ORDER.
--- NOTE | 2019-10-31 11:25 | NUR ---
PT INCONTINENT OF URINE IN BED. STAFF TO ROOM TO ASSIST PT GETTING UP, CLEANSED, CLOTHES CHANGED AND READY FOR LUNCH. PT RESISTANT TO HANDS ON CARE. VERBAL REDIRECTION PROVIDED WITH POSITIVE RESULT.
--- NOTE | 2019-10-31 11:42 | NUR ---
AM GROUP PT DID NOT ATTEND MORNING GROUP THERAPY. PT WAS STILL IN BED.
--- NOTE | 2019-10-31 13:10 | NUR ---
P- CONFUSION, RESISTANT/MILDLY COMBATIVE WITH HANDS ON CARE, ABLE TO VERBALLY REDIRECT THIS AM. I- ORIENTATION, MOOD AND BEHAVIORS ASSESSED. ASSESSED PT FOR SI/HI, INTENT OR PLAN. ASSESSED PT FOR S/S HALLUCINATIONS, PARANOIA AND/OR DELUSIONS. MEDICATIONS ADMINISTERED PER PHYSICIAN'S ORDERS. ASSISTANCE WITH ADL CARE PROVIDED NEEDED. ENCOURAGED PT TO ATTEND AND PARTICIPATE IN [place] GROUPS AND ACTIVITIES. R- PT IS ALERT AND ORIENTED TO SELF ONLY. OTHERWISE CONFUSED. RESPS EASY AND EVEN ON ROOM AIR. MOOD IRRITABLE THIS AM WITH HANDS ON CARE, OTHERWISE CALM. AFECT FLAT. SPEECH IS SOFT, ABLE TO ANSWER SIMPLE QUESTIONS. PT DENIES SI/HI, INTENT OR PLAN. PT DENIES HALLUCINATIONS, NO RESPONSE TO INTERNAL STIMULI NOTED. NO PARANOIA OR DLEUSIONS NOTED. PT MILDLY COMBATIVE THIS AM WITH HANDS ON CARE BUT ABLE TO BE VERBALLY REDIRECTED. PT MED COMPLIANT WITHOUT DIFFICULTY. PT FED SELF 100% OF LUNCH, ADEQUATE FLUID INTAKE. MIRALAX GIVEN FOR CONSTIPATION ORDERED BY . NO DISTRESS NOTED. P- PLAN TO CONTINUE CURRENT TREATMENT, CONTINUE TO MONITOR MOOD AND BEHAVIORS, PROVIDE APPROPRIATE REORIENTATION, REDIRECTION AND 1:1 NEEDED. CONTINUE TO ENCOURAGE MEDICATION COMPLIANCE WELL GROUP ATTENDANCE AND PARTICIPATION.
--- NOTE | 2019-10-31 15:36 | NUR ---
PM GROUP PT WAS PRESENT FOR AFTERNOON GROUP THERAPY BUT IS UNABLE TO PARTICIPATE DUE TO COGNITIVE IMPAIRMENT. PT SAT QUIETLY IN HIS CHAIR AND OBSERVED OR NAPPED. PT EXHIBITED NO AGITATION OR AGGRESSION WHILE IN GROUP.
--- NOTE | 2019-10-31 16:35 | NUR ---
MIRALAX EFFECTIVE, PT CONTINENT XXLARGE SOFT FORMED BM AT THIS TIME.
--- NOTE | 2019-10-31 17:46 | NUR ---
SHIFT CHART CHECK COMPLETED.
[2019-10-31 19:49] VITALS: BP 118/72
--- NOTE | 2019-11-01 01:02 | NUR ---
EXTREMELY COMBATIVE WITH HOC. INCONTINENT OF LARGE AMOUNT URINE. TOOK 5 STAFF MEMBERS TO CHANGE HIM. KICKING, SWINGINGM AND HEADBUTTING STAFF. PLACED IN [place] CHAIR AND BROUGHT DOWN FOR CLOSER MONITORING
--- NOTE | 2019-11-01 04:59 | NUR ---
24 HR chart check completed.
--- NOTE | 2019-11-01 05:39 | NUR ---
SLEPT APPROX 5 3/4 HOUR.
--- NOTE | 2019-11-01 06:15 | NUR ---
SPIT OUT AM MEDICATIONS
[2019-11-01 07:54] VITALS: BP 119/54
--- NOTE | 2019-11-01 09:13 | NUR ---
Clinical Updates faxed to [facility] Attn: Mirna .
--- NOTE | 2019-11-01 10:21 | NUR ---
DR. ESCOBEDO ON UNIT TO ASSESS PATIENT.
--- NOTE | 2019-11-01 11:30 | NUR ---
P: ISOLATIVE AND WITHDRAWN TO SELF. I: ENCOURAGE GROUP PARTICIPATION. R: PATIENT ATTENDED MORNING GROUP SESSION, BUT DID NOT PARTICIPATE. PATIENT IS ALERT TO PERSON AND SITUATION; RECALLS PLACE [place] AND DATE NOV 23. LONG/SHORT TERM MEMORY DEFICITS. DENIES ANY HALLUCINATIONS, DELUSIONS, HI/SI OR PAIN. MEDICATION COMPLIANT. Q 15 MINUTE SAFETY CHECKS MAINTAINED. 1-2 PERSON ASSIST WITH ACTIVITIES OF DAILY LIVING, INCONTINENT OF BOWEL AND BLADDER. SET UP FOR MEALS. INTAKES ARE GOOD WITH ADEQUATE FLUIDS. INTERACTIVE WITH NURSE DURING MEDICATION PASS. MEDICATIONS CRUSHED AND TAKEN WITHOUT DIFFICULTY. NO AGGRESSION NOTED DURING SHIFT. P: CONTINUE TO MONITOR FOR AGGRESSION AND MOOD CHANGES. PROVIDE ONE ON ONE, REDIRECTION/ORIENTATION NEEDED.
--- NOTE | 2019-11-01 11:37 | NUR ---
AM GROUP/BEADING PT WAS PRESENT FOR MORNING GROUP THERAPY BUT IS UNABLE TO PARTICIPATE DUE TO COGNITIVE IMPAIRMENT. PT SAT QUIETLY AND OBSERVED OR NAPPED.
--- NOTE | 2019-11-01 15:33 | NUR ---
Spoke with Mirna at [facility]. Pt. is not accepted at [facility]. She is currently still working with Family on alternate Placement. She has been unable to get the Swage Toolsetter at [place] to return her phone calls. If no placement is found Pt. will return to [facility].
--- NOTE | 2019-11-01 15:41 | NUR ---
PM GROUP/MOVIE PT WAS PRESENT FOR AFTERNOON GROUP THERAPY AND PARTICIPATED BY WATCHING THE MOVIE AND ENJOYING SOME POPCORN. PT EXHIBITED NO AGITATION OR AGGRESSION WHILE IN GROUP
[2019-11-01 19:03] VITALS: BP 114/67
--- NOTE | 2019-11-01 21:11 | NUR ---
P-CONFUSION, IRRITABLE, ISOLATIVE I-REDIRECTION WITH 1:1 THERAPEUTIC INTERVENTIONS AND PRESENT REALTIY. EDUCATE AND ENCOURAGE MEDICATION COMPLIANCE R-PATIENT MEDICATION COMPLIANT WITH HS MEDICATIONS. PATIENT REFUSED NOURISHMENT AT HS AND PROVIDED FLUIDS. PATIENT ISOLATIVE IN DINING AREA AND NOT INTERACTING WITH PEERS. PATIENT INCONTINENT OF URINE AT HS. PATIENT WITH NO HALLUCINATIONS OR DELUSIONS. PATIENT WITH NO SUICIDAL OR HOMICIDAL IDEATIONS. P-CONTINUE TO ENCOURAGE MEDICATION COMPLAINCE, CONTINUE TO PRESENT REALITY, ENCOURAGE GROUP THERAPY WHILE AWAKE
--- NOTE | 2019-11-02 05:47 | NUR ---
PATIENT SLEPT >8 OF UNINTERRUPTED SLEEP THROUGHOUT SHIFT. Q 15 MINUTE CHECKS MAINTAINED. 24 HR chart check completed.
[2019-11-02 07:33] VITALS: BP 130/70
--- NOTE | 2019-11-02 08:45 | NUR ---
DR ESCOBEDO ON UNIT TO ASSES PT. UPDATE PROVIDED.
--- NOTE | 2019-11-02 08:50 | NUR ---
P: WITHDRAWN TO SELF. CONFUSION, PT ALERT TO PERSON ONLY. MEMORY DEFICITS. I: ATTEMPTED TO REORIENT PT. PROVIDED 1:1 FOR THERAPEUTIC COMMUNICATION. ENCOURAGED MEDICATION COMPLAINCE. ENCOURAGED PT TO ATTEND/PARTICIPATE IN GROUP. ENCOURAGED PT TO INTERACT WITH STAFF AND PEERS. MONITORED BEHAVIORS WITH Q15 MINUTE SAFETY CHECKS. ATTEMPTED TO PROVIDE MEDICATION EDUCATION R: PT REFUSED TO ANSWER ANY QUESTIONS REGARDING ORIENTATION. PT JUST SHOOK HIS HEAD YES. PT INTERACTING WITH A FELLOW PEER. MEDICATION COMPLAINT WITHOUT DIFFICULTY. UNABLE TO PROIVIDE MEDICATION EDUCATION DUE TO COGNITIVE IMPAIRMENT. PT REMAINS CONFUSED. IRRITABLE MOOD WITH A FLAT AFFECT. WITHDRAWN FOR THE MAJORITY OF THE MORNING. PT ATTENDED GROUP HOWEVER DID NOT PARTICIPATE. P: CONTINUE TO ENCOURAGE ATTENDANCE/PARTICIPATION IN GROUP, MEDICATION COMPLAINCE, AND PROVIDE 1:1 FOR THERAPEUTIC COMMUNICATION. CONTINUE TO REORIENT PT WHEN NEEDED AND MONITOR BEHAVIORS WITH Q15 MINUTE SAFETY CHECKS. CONTINUE TO ENCOURAGE PT TO INTERACT WITH PEERS AND STAFF. SEE [facility] FLOWSHEET FOR SPECIFIC MONITORING. ASSUALTIVE AND ELOPEMENT PRECAUTIONS MAINTAINED.
--- NOTE | 2019-11-02 11:47 | NUR ---
AM GROUP/EXERCISE/MUSIC/LEISURE PT IN ATTENDANCE BUT RESTING IN WYATT CHAIR ENTIRE GROUP. PT DID NOT WAKE TO BE OFFERED ANY ACTIVITY. PT WILL CONTINUE TO ATTEND FUUTURE GROUP SESSIONS AND PARTICIPATE TO BEST OF PT ABILITY.
--- NOTE | 2019-11-02 15:55 | NUR ---
PM GROUP/MOVIE/LEISURE PT IN ATTENDANCE BUT RESTING IN WYATT CHAIR AT THIS TIME. PT DID NOT WAKE.
[2019-11-02 20:44] VITALS: BP 110/60
--- NOTE | 2019-11-03 03:37 | NUR ---
P-CONFUSION, ISOLATIVE I-REDIRECTION WITH 1:1 THERAPEUTIC INTERVENTIONS AND PRESENT REALTIY. EDUCATE AND ENCOURAGE MEDICATION COMPLIANCE R-PATIENT MEDICATION COMPLIANT WITH HS MEDICATIONS. PATIENT PROVIDED NOURISHMENT AT HS AND PROVIDED FLUIDS. PATIENT ISOLATIVE IN DINING AREA AND NOT INTERACTING WITH PEERS. PATIENT INCONTINENT OF URINE AT HS. PATIENT WITH NO HALLUCINATIONS OR DELUSIONS. PATIENT WITH NO SUICIDAL OR HOMICIDAL IDEATIONS. P-CONTINUE TO ENCOURAGE MEDICATION COMPLAINCE, CONTINUE TO PRESENT REALITY, ENCOURAGE GROUP THERAPY WHILE AWAKE
--- NOTE | 2019-11-03 05:45 | NUR ---
PATIENT OBSERVED ON Q 15 MIN CHECKS TO HAVE SLEPT APPROX 8 HOURS WITH NO AWAKENINGS OR SIGNS AND SYMPTOMS OF DISTRESS NOTED.
[2019-11-03 07:53] VITALS: BP 114/71
--- NOTE | 2019-11-03 10:08 | NUR ---
DR. ESCOBEDO ON UNIT TO ASSESS PATIENT.
--- NOTE | 2019-11-03 12:30 | NUR ---
P: AGGRESSIVE WITH HANDS ON CARE; CONFUSED, INCONTINENT OF BLADDER. I: ONE ON ONE, REDIRECTION, 4 PERSON ASSIST WHEN PROVIDING CARE R: EFFECTIVE. PATIENT IS ALERT TO PERSON WITH CONFUSION; MOOD IS IRRITABLE AT TIMES. LONG/SHORT TERM MEMORY DEFICITS. MEDICATION COMPLIANT. Q 15 MINUTE SAFETY CHECKS. 2-4 ASSIST NEEDED DUE TO AGGRESSION. INCONTINENT OF BOWEL AND BLADDER, SET UP FOR MEALS, INTAKES VARY. PROVIDED PATIENT WITH MILK OF MAGNESIA. REFUSED X MULTIPLE ATTEMPTS. PATIENT DID NOT PARTICIPATE IN GROUP SESSION. PATIENT IN DINING SLEEPING IN WYATT CHAIR. P: CONTINUE TO MONITOR FOR AGGRESSION; PROVIDE ONE ON ONE AND REDIRECTION NEEDED.
--- NOTE | 2019-11-03 12:45 | NUR ---
AM GROUP/EXERCISE/MUSIC/COLOR BY NUMBER PT DID NOT ATTEND AT THIS TIME DUE TO RESTING IN ROOM. PT WILL CONTINUE TO BE ENCOURAGED TO ATTEND AN DPARTICIPATE IN FUTURE GROUP SESSIONS TO BEST OF PT ABILITY.
--- NOTE | 2019-11-03 17:40 | NUR ---
PATIENT ASSISTED 1 PERSON FOR MEALS, DINNER INTAKE WAS 75% WITH 2400CC INTAKES. PATIENT PROVIDED WITH 120CC OF PRUNE JUICE.
--- NOTE | 2019-11-03 22:57 | NUR ---
P-CONFUSION, NON COMPLIANCE WITH MEDICATIONS AND HS VITALS. MILD AGITATION WITH HOC. I-PROVIDE REORIENTATION. PROVIDE 1:1 WITH THERAPUETIC INTERVENTIONS. ENCOURAGE COMPLIANCE ON VITALS AND MEDICATION AND EDUCATE. REAPPROACH NEEDED. PROVIDE SIMPLE STEP BY STEP INSTRUCTIONS DURING HOC TO HELP CALM. REDIRECT NEEDED. R-PATIENT ALERT TO SELF, CONFUSED. PT REFUSES HS MEDICATIONS AND HS BP DESPITE INTERVENTIONS, PT STATES TO "JUST LEAVE HIM ALONE". UNABLE TO REDIRECT. PT ASSISTED TO BED WITH X2 STAFF WITH AN ADDITIONAL STAFF MEMBER STAND BY, COMPLIANT WITH HOC WITH MILD AGITATION, NO COMBATIVE BEHAVIORS OBSERVED. PT VOICES NO SI/HI, HALLUCINATIONS, OR PAIN. PT RESTING QUIETLY AT THIS TIME, RESPIRATIONS EASY AND REGULAR, NO SIGNS OR SYMPTOMS OF DISTRESS NOTED. P-CONTINUE TO MONITOR MOODS AND BEHAVIORS. PROVIDE REORIENTATION. PROVIDE 1:1 WITH THERAPEUTIC INTERVENTIONS. ENCOURAGE MEDICATION COMPLIANCE. MAINTAIN Q 15 MIN CHECKS.
--- NOTE | 2019-11-04 03:23 | NUR ---
PT AWOKE, INCONTINENT OF URINE. INCONTINENCE CARE PROVIDED WITH ASSIST X3, MILD AGITATION NOTED. NO COMBATIVE BEHAVIORS OBSERVED. PT ALSO RECEIVED PRN MOM 30ML AT THIS TIME DUE TO LAST RECORDED BM ON 10/31/19, COMPLIANT WITHOUT DIFFICULTY, BOWEL SOUNDS X4. WILL CONTINUE TO MONITOR FOR EFFECTIVENESS.
--- NOTE | 2019-11-04 06:11 | NUR ---
PATIENT OBSERVED ON Q 15 MIN CHECKS TO HAVE SLEPT APPROX 4 HOURS WITH X1 TOOLS PROGRAMMER AWAKENING. NO SIGNS OR SYMPTOMS OF DISTRESS NOTED.
--- NOTE | 2019-11-04 06:30 | NUR ---
NO BM NOTED DURING THIS SHIFT, PRN MOM NOT EFFECTIVE AT THIS TIME. WILL NOTIFY DAY SHIFT.
[2019-11-04 07:52] VITALS: BP 116/66
--- NOTE | 2019-11-04 08:00 | NUR ---
Treatment Plan meeting was held with Dr. Rincon, EMILY Monroy, RN, AT, MENTAL HEALTH SPECIALIST-S and High Lift Operator in attendance. Plan for discharge Monday. At this point patient will return to [facility]. No alternate placement found for patient with [facility] sending numerous referrals.
--- NOTE | 2019-11-04 10:45 | NUR ---
Clinical Updates faxed to [facility] Attn: Mirna.
--- NOTE | 2019-11-04 17:25 | NUR ---
P: WITHDRAWN AND ISOLATIVE I: ONE ON ONE, REDIRECT, ENCOURAGE PATIENT TO ATTEND GROUP SESSION. R: PATIENT ATTTENDED GROUP BUT DID NOT PARTICIPATE. SLEEPING IN WYATT CHAIR. PATIENT IS ALERT TO PERSON WITH CONFUSION; LONG/SHORT TERM MEMORY DEIFICITS. MOOD IS WITHDRAWN WITH FLAT AFFECT, CALM DEMEANOR, NO AGGRESSION WITH HANDS ON CARE. NO RESPONSE TO INTERNAL STIMULI OBSERVED. NO VOICED STATEMENTS OF HI/SI OR PAIN. MEDICATION COMPLIANT. Q 15 MINUTE SAFETY CHECKS MAINTAINED. 2 PERSON ASSIST WITH ACTIVITIES OF DAILY LIVING, INCONTINENT OF BOWEL AND BLADDER. SET UP FOR MEALS, INTAKE ARE FAIR WITH ENCOURAGEMENT TO DRINK FLUIDS. P: CONTINUE TO MONITOR FOR AGGRESSION; PROVIDE ONE ON ONE AND REDIRECTION NEEDED.
--- NOTE | 2019-11-04 17:50 | NUR ---
PM GROUP/BEADING/LEISURE PT IN ATTENDANCE BUT RESTING IN RECLINER ENTIRE TIME. PT DID NOT WAKE, BUT WILL CONTINUE TO ATTEND AND PARTICIPATE IN FUTURE GROUP SESSIONS TO BEST OF PT ABILITY.
--- NOTE | 2019-11-04 18:57 | NUR ---
PATIENT'S POA NATI STIPEC INFORM NURSE OF WANTING TO CHANGE PATIENT'S CODE STATUS FROM FULL CODE TO [id number]-[id number]. DR. JAFFE NOTIFIED OF POA'S REQUEST.
[2019-11-04 20:15] VITALS: BP 110/77
--- NOTE | 2019-11-04 20:42 | NUR ---
EVENING/STORY PT IN ATTENDNACE RELAXING QUIETLY. NO AGITATION OR AGGRESSION EXPRESSED BY PT AT THIS TIME.
--- NOTE | 2019-11-05 00:36 | NUR ---
P-CONFUSION, MILD AGITATION WITH HOC. I-REORIENT AND PRESENT REALITY. PROVIDE 1:1 WITH THERAPEUTIC INTERVENTIONS. ENCOURAGE MEDICATION COMPLIANCE AND EDUCATE. MONITOR SLEEP R-PATIENT ALERT TO SELF, CONFUSED PER BASELINE. PT CALM, ISOLATIVE TO SELF, WITHDRAWN. DURING 1:1 PATIENT PROVIDED ONLY SIMPLE RESPONSES, EITHER STATING "YES" OR "NO" AND THAT HE WAS "FINE". PT DENIES SI/HI, HALLUCINATIONS, OR PAIN. PT MEDICATION COMPLIANT WITHOUT DIFFICULTY, UNABLE TO EDUCATE DUE TO COGNITION. MILD AGITATION NOTED WITH HOC ONLY WHEN MORE THAN ONE STAFF MEMBER IS ASSISTING. NO COMBATIVE BEHAVIORS NOTED, EASILY REDIRECTED NEEDED. PT AMBULATORY WITH ASSIST X1, ABLE TO MAKE NEEDS KNOWN, CONTINENT/INCONTINENT OF BOWEL AND BLADDER. PT CURRENTLY LAYING DOWN WITH EYES CLOSED, RESPIRATIONS EASY AND REGULAR, NO SIGNS OR SYMPTOMS OF DISTRESS NOTED. P-CONTINUE TO MONITOR MOOD AND BEHAVIORS. PRESENT REALITY AND REORIENT. REDIRECT NEEDED. PROVIDE 1:1 WITH SUPPORT. ENCOURAGE MEDICATION COMPLIANCE. MAINTAIN Q 15 MIN CHECKS.
--- NOTE | 2019-11-05 03:59 | NUR ---
24 HOUR CHART CHECK COMPLETED.
--- NOTE | 2019-11-05 05:27 | NUR ---
PT SLEPT 6+ HOURS
--- NOTE | 2019-11-05 06:18 | NUR ---
ON UNIT AT THIS TIME, DNRCCA FORM COMPLETED.
[2019-11-05 07:51] VITALS: BP 113/60
--- NOTE | 2019-11-05 08:00 | NUR ---
Treatment Plan meeting was held with EMILY Monroy, RN, AT, DHRUV-S and Warranty Manager. Plan for discharge today with Return to [facility]. Pt. has been referred to other [facility] facilities for alternate placement who declined. Spoke with Mirna at [facility] this morning and informed her of discharge and group fitness department head time. Faxed discharge Paperwork to [facility] Intake .
[2019-11-05] MEDS ORDERED: RISPERIDONE0.5 MG PO (08:14)
[2019-11-05] MEDS ORDERED: HYDROXYZINE PAM25 M1 PO (08:14)
[2019-11-05] MEDS ORDERED: DIVALPROEX SOD125 M1 PO (08:14)
--- NOTE | 2019-11-05 08:24 | NUR ---
DR MCRAE UPDATED ON PT DISCHARGE. DR STATED HE WOULD LOOK AT MEDICATIONS.
--- NOTE | 2019-11-05 09:57 | NUR ---
DR JAFFE NOTIFIED AT THIS TIME OF PT DISCHARGE. REQUESTED DR TO CONTINUE MEDICATIONS.
--- NOTE | 2019-11-05 10:55 | NUR ---
Family meeting held via the phone with pt's daughter Mary Ellen Goldstein. Discussed pt's current status. Mary Ellen is aware that pt must return to [facility]. Mary Ellen requested a list of other NFs that this scientific writer believes may accept pt with his hx of behavioral outbursts. Informed Mary Ellen that a list of NFs will be mailed to her. Educated Mary Ellen about the barriers that are in place that will make it difficult for another NF to accept pt. Mary Ellen voiced understanding. Informed Mary Ellen that pt will be discharging today to [place].
--- NOTE | 2019-11-05 11:17 | NUR ---
PT OFF THE UNIT AT THIS TIME WITH COMMERCIAL LEASE ADMINISTRATOR AND EARTHMOVING PLANT OPERATOR X2. NURSRE TO NURSE REPORT GIVEN TO NURSE AT [facility]. VS WNL. MOOD CALM AND STABLE. ALL BELONGINGS SENT WITH PT.
--- NOTE | 2019-11-05 11:24 | NUR ---
Patient is discharging today returning to [facility]. Follow-up will be with Dr Rincon, visiting psychiatrist. While at [facility], pt's behaviors improved. Pt was no longer aggressive and combative by discharge. Due to pt's cognitive impairment, it was often difficult for pt to participate in programming.
--- NOTE | 2019-11-05 12:27 | NUR ---
Spoke with Cuca Kaplan Manufacturing Plant Technician Care [facility] and notified her of discharge with return to [facility]. Discharge Paperwork Faxed to [facility].
== END 2019-11-05 11:17 | DRG 883 ==
LOC: 3N 15:09
PROVIDERS: ADMIT Psychiatry & Neurology Psychiatry
DX: F63.81 Intermittent explosive disorder (principal); F02.81 Dementia in other diseases classified elsewhere, unspecified severity, with behavioral disturbance; I10 Essential (primary) hypertension; G30.9 Alzheimer's disease, unspecified; I25.10 Atherosclerotic heart disease of native coronary artery without angina pectoris; E78.5 Hyperlipidemia, unspecified; B35.3 Tinea pedis; M20.5X2 Other deformities of toe(s) (acquired), left foot; M20.5X1 Other deformities of toe(s) (acquired), right foot; Z82.49 Family history of ischemic heart disease and other diseases of the circulatory system; Z83.6 Family history of other diseases of the respiratory system; Z95.5 Presence of coronary angioplasty implant and graft; Z79.82 Long term (current) use of aspirin; Z79.899 Other long term (current) drug therapy

== ENCOUNTER 2020-01-23 09:56 | Inpatient (IN) | payer MEDICARE ==
[2020-01-23] VITALS (10 sets, daily range): BP systolic 93–123; BP diastolic 56–83
[~2020-01-23] VITALS: Ht 172.7 cm; Wt 68.0 kg
[~2020-01-23 09:56] MED LIST changes: +DEPAKOTE DR500 MG PO; +DIVALPROEX SOD125 M1 PO; +HYDROXYZINE PAM25 M1 PO; +RISPERIDONE0.5 MG PO; +VISTARIL50 MG PO
[2020-01-23 10:32] LABS: BASO % 0.2 % (0.0-1.0); HEMATOCRIT 50.8 % (42.0-52.0); LYMPH # 3.8 10*3/uL (1.3-4.4); LYMPH % 17.3 % (27.0-41.0); MEAN CELL VOLUME 100.2 fl (80.0-94.0); MEAN CORPUSCULAR HGB 30.6 pg (27.0-31.0); MEAN CORPUSCULAR HGB CONC 30.5 g/dl (33.0-37.0); MEAN PLATELET VOLUME 11.2 fl (9.6-12.3); MONO # 1.3 10*3/uL (0.1-1.0); NEUT # 16.5 10*3/uL (2.3-7.9); NUCLEATED RED BLOOD CELL 0.1 % (0.0-0.0); PLATELET COUNT AUTOMATED 327 10*3/uL (130-400); RED BLOOD COUNT 5.07 10*6/uL (4.50-5.90); RED CELL DISTRI WIDTH 16.2 % (0-14.5); WHITE BLOOD COUNT 21.7 10*3/uL (4.8-10.8)
--- NOTE | 2020-01-23 10:38 | NUR ---
PTS DAUGHTER CALLED AND LEFT NUMBER [phone]. NATI HARVEY.
[2020-01-23 11:30] LABS: BILIRUBIN NEGATIVE (NEGATIVE); BLOOD 3+ (NEGATIVE); CLARITY CLOUDY (CLEAR); COLOR YELLOW (YELLOW); GLUCOSE NEGATIVE (NEGATIVE); KETONE NEGATIVE (NEGATIVE); LEUKO ESTERASE 1+ (NEGATIVE); NITRITE NEGATIVE (NEGATIVE); UROBILINOGEN 0.2 E.U./dl (0.2-1.0)
[2020-01-23 11:42] LABS: RBC TNTC rbc/hpf (0-2); WBC 41-50 wbc/hpf (0-5)
[2020-01-23 11:43] LABS: BACTERIA 2+; MUCOUS 2+
[2020-01-23 11:45] LABS: FINE GRANULAR CAST TNTC
[2020-01-23 12:37] LABS: ACT PARTIAL THROMBO TIME 30.8 SECONDS (20.0-32.1); INTERNATIONAL NORM RATIO 2.7 (2.0-3.5)
[2020-01-23 12:43] LABS: CREATININE 2.09 mg/dL (0.70-1.30); POTASSIUM 4.3 mmol/L (3.5-5.1); TOTAL PROTEIN 7.1 gm/dL (6.4-8.2); TROPONIN I 0.026 ng/ml (<0.045)
--- NOTE | 2020-01-23 13:19 | NUR ---
CHILD CARE AIDE received phone call from [facility]. This facilities ED contacted [facility] about the patients return to OE, then the patient was admitted to the 5th floor. CHILD CARE AIDE epxlained the patient was tested for COVID suspicion. CHILD CARE AIDE explained per hospital policy the patient was admitted to the floor. If patient was to down grade level of care patient could be assessed for GIP or could return to OE with [facility] at that time. CHILD CARE AIDE will continue to follow.
--- NOTE | 2020-01-23 14:00 | NUR ---
The assessment has been completed. NIKKI FERGUSON Time: 1399 A 79 year old MALE admitted to 5E under services of HERRERA AVILES DO. Pt. arrived via ambulance from ER. Chief complaint: ARRIVES VIA EMS FROM [facility], NURSE FROM [facility]POR[facility]ICAL LABS WERE : NA 162, CL 128. PT LETHARGIC. HSX DEMENTIA. SEES WOUND CARE FOR NECROTIC TOES. . NIKKI FERGUSON
[2020-01-23] MEDS ORDERED: PAIN RELIEVER650 MG PO (14:31)
[2020-01-23] MEDS ORDERED: MIRALAX119 GM PO (14:34)
[2020-01-23] MEDS ORDERED: REMERON15 M2 PO (14:35)
[2020-01-23] MEDS ORDERED: VISTARIL25 M2 PO (14:36)
--- NOTE | 2020-01-23 14:37 | NUR ---
MED REC UPDATED PER POLICY.
--- NOTE | 2020-01-23 15:05 | NUR ---
PROFESSIONAL FEE CODER faxed referral to [facility]. Will need Hospice Order faxed.
--- NOTE | 2020-01-23 15:17 | NUR ---
TERESA received call from Dr. Bejarano asking if [facility] would be able to come in to admit the patient under their care. Dr. Bejarano stated that this facility would provide PPE. Dr. Bejarano also stated that family could come in as this is end of life needs. TERESA spoke with [facility]. A RN will be her within 45 minutes to assess the patient. DHRUV Son spoke with the Director of Inpatient [place], vistiation policy is only 2 family members allowed in this facility. 1 in patient room at a time while the other remains in the lobby. TERESA explained this to on 5.
--- NOTE | 2020-01-23 15:30 | NUR ---
PT MOANS AND GROANS WHEN ATTEMPTING TO BE TURNED. SEEMS LIKE IT CAUSES HIM SOME PAIN AND DISTRESS. WILL INFORM HOSPICE NURSE.
--- NOTE | 2020-01-23 17:20 | NUR ---
RECOMMENDATIONS RECEIVED FROM HOSPICE NURSE. RECOMMENDATIONS CALLED TO DR GREENE. APPRORPIATE ORDERS PLACED FOR COMFORT OF PATIENT. DR GREENE STATES THAT HE WILL TALK WITH ATTENDING ON WHETHER TO KEEP THE CONTINUOUS D5W AT 60 CC/HOUR. WILL CONTINUE TO MONITOR. CALL LIGHT IN REACH.
--- NOTE | 2020-01-23 18:50 | NUR ---
MORPHINE DRIP INITIATED AT THIS TIME PER POLICY AND ORDERS RECEIVED. 2 NURSES VERIFIED. YULISA RN AND MAURICIO WILSON. PT RESPIRATIONS UNLABORED AT THIS TIME. PT LYING IN BED WITH EYES OPEN, NO ANSWER WHEN ASKED HOW HIS PAIN IS. ALL NEEDS APPEAR MET. SAFETY MEASURES IN PLACE. CALL LIGHT IN REACH.
--- NOTE | 2020-01-24 05:53 | NUR ---
Spoke with Dr. Castillo regarding wound care since patient is admitted under hospice. He stated that the X number will be changed today and to not completed a wound assessment due to patient increase in pain while assisting patient with care since patient is hospice.
--- NOTE | 2020-01-24 07:29 | NUR ---
DIRECTOR OF HOSPITALITY notified RN Hospitalist Coordinator Leticia of the patient needed to be dc and readmitted to [facility].
[2020-01-24 08:00] VITALS: BP 98/58
--- NOTE | 2020-01-24 08:00 | NUR ---
TOOK OVER CARE OF PT AT THIS TIME. PT RESTING IN BED, EYES CLOSED. RESPIRATIONS 12. MORPHINE DRIP INFUSING PER ORDERS. VITALS OBTAINED. 3L SUPPLEMENTAL OXYGEN ADDED NURSING MEAUSRE D/T POX 88%. PULSE OX 94% ON 3L NC. RESPIRATIONS EASY AND UNLABORED. HOB ELEVATED, SAFETY MEASURES IN PLACE. CALL LIGHT IN REACH.
--- NOTE | 2020-01-24 09:32 | NUR ---
Discharge instructions reviewed with patient/family. Patient receptive and verbalizes understanding. Follow-up care arranged. Written instructions given to patient/family. MANUELA FERNÁNDEZ
== END 2020-01-24 09:32 | disposition hospice, home (50) | DRG 871 ==
LOC: ED 09:56 → EDHOLD 11:31 → 5E 11:43
PROVIDERS: Emergency Medicine; ADMIT Family Medicine
DX: A41.9 Sepsis, unspecified organism (principal); N17.0 Acute kidney failure with tubular necrosis; E43 Unspecified severe protein-calorie malnutrition; N39.0 Urinary tract infection, site not specified; E87.0 Hyperosmolality and hypernatremia; E87.2 Acidosis; R65.20 Severe sepsis without septic shock; I25.10 Atherosclerotic heart disease of native coronary artery without angina pectoris; I10 Essential (primary) hypertension; E78.00 Pure hypercholesterolemia, unspecified; G30.9 Alzheimer's disease, unspecified; F02.80 Dementia in other diseases classified elsewhere, unspecified severity, without behavioral disturbance, psychotic disturbance, mood disturbance, and anxiety; E78.5 Hyperlipidemia, unspecified; Z20.828 Contact with and (suspected) exposure to other viral communicable diseases; Z51.5 Encounter for palliative care; E87.8 Other disorders of electrolyte and fluid balance, not elsewhere classified; R73.9 Hyperglycemia, unspecified; E83.41 Hypermagnesemia; F63.81 Intermittent explosive disorder; I25.2 Old myocardial infarction; Z82.49 Family history of ischemic heart disease and other diseases of the circulatory system; Z83.6 Family history of other diseases of the respiratory system; Z79.82 Long term (current) use of aspirin; Z79.899 Other long term (current) drug therapy; Z95.5 Presence of coronary angioplasty implant and graft; Z68.22 Body mass index [BMI] 22.0-22.9, adult

== ENCOUNTER 2020-01-24 09:38 | Inpatient (IN) | payer OTHER, MEDICARE ==
[~2020-01-24] VITALS: Ht 170.1 cm; Wt 68.0 kg
[~2020-01-24 09:38] MED LIST changes: +MIRALAX119 GM PO; +PAIN RELIEVER650 MG PO; +REMERON15 M2 PO; +VISTARIL25 M2 PO
[2020-01-24 09:50] VITALS: BP 98/58
[2020-01-24 14:00] VITALS: BP 73/53
[2020-01-24 20:00] VITALS: BP 92/54
[2020-01-25 12:00] VITALS: BP 61/43
[2020-01-25 18:43] VITALS: BP 78/44
[2020-01-25 20:00] VITALS: BP 71/28
[2020-01-26 08:00] VITALS: BP 76/47
[2020-01-26 12:00] VITALS: BP 90/54
[2020-01-26 16:00] VITALS: BP 92/47
[2020-01-26 20:00] VITALS: BP 95/58
[2020-01-27 07:46] VITALS: BP 97/43
[2020-01-27 12:00] VITALS: BP 84/31
[2020-01-27 16:00] VITALS: BP 92/49
[2020-01-27 20:00] VITALS: BP 113/90
[2020-01-27 20:18] VITALS: BP 144/84
[2020-01-28] VITALS: BP 68/49
[2020-01-28 08:00] VITALS: BP 78/43
[2020-01-28 12:00] VITALS: BP 87/50
[2020-01-29] VITALS: BP 71/39
[2020-01-29 08:00] VITALS: BP 97/46
[2020-01-29 16:00] VITALS: BP 70/40
[2020-01-29 19:30] VITALS: BP 78/46
[2020-01-30 08:00] VITALS: BP 85/42
[2020-01-30 12:00] VITALS: BP 80/39
[2020-01-30 16:00] VITALS: BP 82/39
[2020-01-31] VITALS: BP 52/28
== END 2020-01-31 02:24 | disposition expired | DRG 871 ==
LOC: 5E 09:38 → 4E 09:38
PROVIDERS: ADMIT Family Medicine
DX: A41.9 Sepsis, unspecified organism (principal); N17.0 Acute kidney failure with tubular necrosis; E43 Unspecified severe protein-calorie malnutrition; E87.0 Hyperosmolality and hypernatremia; E87.2 Acidosis; N30.01 Acute cystitis with hematuria; R65.20 Severe sepsis without septic shock; R73.9 Hyperglycemia, unspecified; E83.41 Hypermagnesemia; I25.10 Atherosclerotic heart disease of native coronary artery without angina pectoris; E78.2 Mixed hyperlipidemia; I10 Essential (primary) hypertension; G30.9 Alzheimer's disease, unspecified; F02.80 Dementia in other diseases classified elsewhere, unspecified severity, without behavioral disturbance, psychotic disturbance, mood disturbance, and anxiety; F63.81 Intermittent explosive disorder; Z51.5 Encounter for palliative care; Z03.818 Encounter for observation for suspected exposure to other biological agents ruled out; Z82.49 Family history of ischemic heart disease and other diseases of the circulatory system; Z83.6 Family history of other diseases of the respiratory system; Z79.82 Long term (current) use of aspirin; Z79.899 Other long term (current) drug therapy; Z68.23 Body mass index [BMI] 23.0-23.9, adult